=== PATIENT | male | born 1945 | race Caucasian/White ===

== ENCOUNTER 2018-02-08 22:32 | Emergency (ER) | payer MEDICARE, MEDICAID ==
[~2018-02-08] VITALS: Ht 170.2 cm; Wt 56.7 kg
--- OUTSIDE RECORDS SUMMARY | 2018-02-08 22:37 | XMS REPORT ---
Author Author JANEEN PEÑA Organization [facility] Address [address] [place] [address] Care Team Providers Care Creative Assistant Name Role Phone JANEEN PEÑA Unavailable PROBLEMS Type Condition ICD9-CM Code AKT35-VB Code Onset Dates Condition Status SNOMED Code Problem Frail elderly R54 Active 484406547 Problem Anemia in chronic illness D63.8 Active 362103997 Problem Dysthymia F34.1 Active 14354997 Problem Acquired hypothyroidism E03.9 Active 292200041 Problem Low back pain M54.5 Active 205802743 Problem Cervical stenosis of spinal canal M48.02 Active 03004921 Problem Moderate episode of recurrent major depressive disorder F33.1 Active 568086232 Problem Abscess of groin, right L02.214 Active 39609766 Problem Age-related cognitive decline R41.81 Active 989638247 Problem High risk medication use Z79.899 Active [id number] ALLERGIES No Information SOCIAL HISTORY Never Assessed PLAN OF CARE VITAL SIGNS MEDICATIONS Unknown Medications RESULTS No Results PROCEDURES No Known procedures IMMUNIZATIONS No Known Immunizations MEDICAL (GENERAL) HISTORY Type Description Date Medical History Spinal stenosis of lumbar region Medical History Degeneration of lumbar or lumbosacral intervertebral disc Medical History Spinal stenosis in cervical region Medical History Chronic lymphocytic thyroiditis Medical History Hepatomegaly Medical History Other chronic nonalcoholic liver disease Medical History Nondependent tobacco use disorder Medical History Memory loss Medical History Chronic hepatitis C without mention of hepatic coma Medical History Umbilical hernia without mention of obstruction or gangrene Medical History 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
--- OUTSIDE RECORDS SUMMARY | 2018-02-08 22:37 | XMS REPORT ---
Author Author JANEEN PEÑA Organization [employer] Address Unknown Phone Unavailable Care Team Providers Care Heading Maker Name Role Phone JANEEN PEÑA CP Unavailable Allergies, Adverse Reactions, Alerts Substance Reaction Event Type N.K.D.A. Info Not Available Non Drug Allergy Problems Problem Type Condition Code Onset Dates Condition Status Problem Unspecified curvature of spine associated with other condition 737.9 Active Problem Hyposmolality and/or hyponatremia 276.1 Active Problem Chronic hepatitis C without mention of hepatic coma 070.54 Active Assessment Frail elderly R54 Active Assessment Acquired hypothyroidism E03.9 Active Problem Acquired hypothyroidism E03.9 Active Problem Frail elderly R54 Active Problem Dysthymia F34.1 Active Problem Other specified drug dependence, unspecified abuse 304.60 Active Problem Nondependent alcohol abuse, unspecified drunkenness 305.00 Active Problem Chronic lymphocytic thyroiditis 245.2 Active Problem Nondependent tobacco use disorder 305.1 Active Medications Medication Code System Code Instructions Start Date End Date Status Dosage Levothyroxine Sodium [facility] 15768800373 125 MCG Orally Once a day 1 tablet Morphine Sulfate [facility] [address]-71 30 MG Orally 2 times a day 1 tablet as needed Gabapentin [facility] [address]-62 600 MG Orally 4 times a day Dec 19, 2014 1 tablet Procedures Procedure Coding System Code Date [facility] VISIT ESTABLISHED PATIENT CPT-4 G0467 May 24, 2016 Office Visit, Est Pt., Level 3 CPT-4 61432 May 24, 2016 [facility] CPT-4 NOBLL May 24, 2016 VENIPUNCT, ROUTINE* CPT-4 06357 May 24, 2016 Vital Signs Date/Time: May 24, 2016 Cardiac Monitoring Heart Rate 81 bpm Weight 124.3 lbs Height 67 in BMI 19.47 Index Blood Pressure Diastolic 64 mmHg Blood Pressure Systolic 96 mmHg Results No Known Results Summary Purpose [employer] Submission
--- OUTSIDE RECORDS SUMMARY | 2018-02-08 22:37 | XMS REPORT ---
Author Author JANEEN PEÑA Organization [facility] Address [address] [place] [address] Care Team Providers Care Restaurant District Manager Name Role Phone JANEEN PEÑA Unavailable PROBLEMS Type Condition ICD9-CM Code YUA73-PH Code Onset Dates Condition Status SNOMED Code Problem Frail elderly R54 Active 372829146 Problem Anemia in chronic illness D63.8 Active 769870555 Problem Dysthymia F34.1 Active 44935496 Problem Acquired hypothyroidism E03.9 Active 950958825 Problem Low back pain M54.5 Active 730708088 Problem Cervical stenosis of spinal canal M48.02 Active 61266580 Problem Moderate episode of recurrent major depressive disorder F33.1 Active 434603081 Problem Abscess of groin, right L02.214 Active 83833910 Problem Age-related cognitive decline R41.81 Active 449686338 Problem High risk medication use Z79.899 Active [id number] ALLERGIES No Information SOCIAL HISTORY Never Assessed [...]
--- OUTSIDE RECORDS SUMMARY | 2018-02-08 22:38 | XMS REPORT ---
Author Author ROBE LABOY [facility] [employer] Address Unknown Phone Unavailable Care Team Providers Care Furnace Installer Helper Name Role Phone ROBE LABOY Unavailable Allergies, Adverse Reactions, Alerts Substance Reaction Event Type N.K.D.A. Info Not Available Non Drug Allergy Problems Problem Type Condition Code Onset Dates Condition Status Problem Unspecified viral hepatitis C without hepatic coma 070.70 Active Problem Unspecified curvature of spine associated with other condition 737.9 Active Problem Unspecified anemia 285.9 Active Problem Chronic lymphocytic thyroiditis 245.2 Active Problem Nondependent tobacco use disorder 305.1 Active Problem Spinal stenosis of lumbar region 724.02 Active Problem Hyposmolality and/or hyponatremia 276.1 Active Problem Chronic hepatitis C without mention of hepatic coma 070.54 Active Problem Other specified drug dependence, unspecified abuse 304.60 Active Problem Nondependent alcohol abuse, unspecified drunkenness 305.[address] of the chest 793.2 Active Assessment Chronic lymphocytic thyroiditis 245.2 Active Assessment Spinal stenosis of lumbar region 724.02 Active Assessment Abnormal weight loss 783.21 Active Problem Degeneration of cervical intervertebral disc 722.4 Active Medications Medication Code System Code Instructions Start Date End Date Status Dosage Levothyroxine Sodium [facility] [address]-00 150 MCG Orally Once a day 1 tablet Gabapentin [facility] [address]-67 600 MG Orally 4 times a day Dec 19, 2014 1 tablet Levaquin [facility] [address]-95 750 MG Orally Once a day Jul 16, 2015 Jul 23, 2015 1 tablet Procedures Procedure Coding System Code Date [facility] VISIT ESTABLISHED PATIENT CPT-4 G0467 Jul 16, 2015 Office Visit, Est Pt., Level 4 CPT-4 27930 Jul 16, 2015 [facility] CPT-4 NOBLL Jul 16, 2015 VENIPUNCT, ROUTINE* CPT-4 65069 Jul 16, 2015 Vital Signs Date/Time: Jul 16, 2015 Temperature 98.2 F Weight 128 lbs Height 67 in BMI 20.05 Index Blood Pressure Diastolic 60 mmHg Blood Pressure Systolic 90 mmHg Cardiac Monitoring Heart Rate 84 bpm Results Name Result Date Reference Range Unit Abnormality Flag AFP TUMOR MARKER, SERUM ROUTINE VENIPUNCTURE CT Scan : Chest w/ Contrast Summary Purpose [employer] Submission
--- OUTSIDE RECORDS SUMMARY | 2018-02-08 22:38 | XMS REPORT ---
Author Author JANEEN PEÑA [facility] Address [address] [place] [address] Care Team Providers Care Bottle Sorter Name Role Phone JANEEN PEÑA Unavailable PROBLEMS Type Condition ICD9-CM Code XAD60-SD Code Onset Dates Condition Status SNOMED Code Problem Age-related cognitive decline R41.81 Active 369469558 Problem Low back pain M54.5 Active 387155679 Problem Cervical stenosis of spinal canal M48.02 Active 40228492 Problem Autoimmune thyroiditis E06.3 Active 00536547 Problem Chronic pain due to trauma G89.21 Active 678250070 Problem Hearing loss, unspecified hearing loss type, unspecified laterality H91.90 Active 94300259 Problem Blind H54.7 Active 120667225 Problem Other chronic pain G89.29 Active 69997579 Problem Chronic hepatitis C without hepatic coma B18.2 Active 998206381 Problem Acquired hypothyroidism E03.9 Active 519853137 Problem Anemia in chronic illness D63.8 Active 068151263 Problem Abscess of groin, right L02.214 Active 18139982 Problem Frail elderly R54 Active 971899483 Problem Moderate episode of recurrent major depressive disorder F33.1 Active 336465740 Problem Dysthymia F34.1 Active 11142317 Problem High risk medication use Z79.899 Active [id number] ALLERGIES No Known Allergies ENCOUNTERS Encounter Location Date Diagnosis [facility] [address] [facility] [id number] [place] [address] Dec, Cervical stenosis of spinal canal M48.02 and Spinal stenosis , lumbosacral region M48.07 [employer] [address] [place] [address] Dec, Encounter for examination for admission to retirement Z02.2 ; Spinal stenosis, lumbosacral region M48.07 ; Chronic pain due to trauma G89.21 ; Cervical stenosis of spinal canal M48.02 ; Autoimmune thyroiditis E06.3 ; Chronic hepatitis C without hepatic coma B18.2 ; Anemia in chronic illness D63.8 ; Frail elderly R54 ; Age-related cognitive decline R41.81 ; Hearing loss , unspecified hearing loss type, unspecified laterality H91.90 ; Blind H54.7 ; Tobacco abuse Z72.0 and Neglected elder, initial encounter T74.01XA [facility] [address] [facility] [id number] [place] [address] Dec, [facility] [address] [id number] [place] [address] Dec, High risk medication use Z79.899 ; Cervical stenosis of spinal canal M48.02 ; Frail elderly R54 and Age-related cognitive decline R41.[address] [facility] [address] [id number][place] [address] Dec, [facility] [address] [id number][place] [address] Dec, [facility] [address] [id number][place] [id number] Aug, [facility] [address] [id number][place] [address] Jul, [facility] [address] [id number][place] [address] Jun, High risk medication use Z79.[address] [facility] [address] [id number][place] [address] Jun, [facility] [address] [id number] [place] [address] May, [facility] [address] [id number][place] [address] May, High risk medication use Z79.[address] [facility] [address] [id number][place] [address] May, [facility] [address] [id number] [place] [address] May, Acquired hypothyroidism E03.[address] [facility] [address] [id number] [place] [address] May, Acquired hypothyroidism E03.[address] [facility] [address] [id number] [place] [address] May, High risk medication use Z79.899 [facility] [address] [facility] [id number], [place] [address] Apr, [facility] [address] [id number] [place] [address] Apr, [facility] [address] [id number] [place] [address] Apr, Cervical stenosis of spinal canal M48.[address] [facility] [address] [id number][place] [address] Apr, High risk medication use Z79.[address] [facility] [address] [id number], [place] [address] Mar, High risk medication use Z79.899 ; Cervical stenosis of spinal canal M48.02 and Low back pain M54.[address] [facility] [address] [id number], [place] [address] Mar, [facility] [address] [id number] [place] [address] Mar, [facility] [address] [id number] [place] [address] Mar, High risk medication use Z79.[address] [facility] [address] [id number] [place] [id number] February, [facility] [address] [id number] [place] [address] February, [facility] [address] [id number][place] [address] February, [facility] [address] [id number] [place] [address] February, [facility] [address] [id number], [place] [id number] February, [facility] [address] [id number], [place] [address] February, [facility] [address] [id number][place] [address] February, High risk medication use Z79.899 ; Cervical stenosis of spinal canal M48.02 ; Abscess of groin, right L02.214 and Age-related cognitive decline R41.[address] [facility] [address] [id number], [place] [address] February, [facility] [address] [id number] [address] February, Acquired hypothyroidism E03.[address] [facility] [address] [id number], [place] [id number] February, [facility] [address] [facility] [id number][place] [address] February, Anemia in chronic illness D63.8 and Acquired hypothyroidism E03.9 [facility] [address] [id number], [place] [id number] February, Acquired hypothyroidism E03.9 and Anemia in chronic illness D63.[address] [facility] [address] [id number], [place] [address] February, Cervical stenosis of spinal canal M48.02 [facility] [address] [address] [id number], [place] [address] February, [facility] [address] [id number], [place] [id number] Jan, [facility] [address] [id number][place] [address] Jan, Moderate episode of recurrent major depressive disorder F33.[address] [facility] [address] [id number] [place] [address] Jan, [facility] [address] [id number] [place] [address] Jan, Abscess of groin, right L02.[address] [facility] [address] [id number] [place] [address] Jan, Abscess of right groin L02.[address] [facility] [address] [id number] [place] [address] May, [facility] [address] [id number] [place] [address] May, [facility] [address] [id number] [place] [address] May, Anemia in chronic illness D63.8 and Acquired hypothyroidism E03.[address] [facility] [address] [id number], [place] [address]1987[address] May, Dysthymia F34.[address] [facility] [address] [id number] [place] [address] May, Acquired hypothyroidism E03.9 and Frail elderly R54 [facility] [address] [id number], [place] [address] Jan, Hypothyroidism E03.[address] [facility] [address] [id number] [place] [address] Dec, [facility] [address] [id number] [place] [address] Jul, [facility] [address] [id number] [place] [address] Jun, [facility] [address] [id number] [place] [address] Jun, Spinal stenosis of lumbar region 724.02 ; Chronic lymphocytic thyroiditis 245.2 ; Abnormal CT of the chest 793.2 and Abnormal weight loss 783.[address] [facility] [address] [id number] [place] [address] Apr, Dental examination V72.2 [facility] [address] [id number][place] [address] Apr, [facility] [address] [id number], [place] [address] Apr, Spinal stenosis of lumbar region 724.02 and Chronic lymphocytic thyroiditis 245.2 [facility] [address] [id number], [place] [id number] Apr, [facility] [address] [id number], [place] [id number] Apr, [facility] [address] [id number], [place] [address] Apr, [place] [address] [id number] Mar, [id number], [place] [address] Mar, [facility] [address] [id number], [place] [id number] Mar, Spinal stenosis of lumbar region 724.02 ; Chronic lymphocytic thyroiditis 245.2 and Noncompliance with therapeutic plan V15.81 [facility] [address] [id number], [place] [address] February, [facility] [address] [id number], [place] 446[address] February, [facility] [address] [id number], [place] 334[address] February, Chronic lymphocytic thyroiditis 245.2 [facility] [address] [id number], [place] [id number] Jan, [facility] [address] [id number] [address] Jan, [facility] [address] [id number] [address] 13 Jan, 2015 [facility] [place] [facility] [address] [id number] [place] [address] Dec, [facility] [place] [facility] [address] [id number] [place] [address] Dec, [facility] [place] [facility] [address] [id number] [place] [address] Dec, [facility] [place] [facility] [address] [id number] [place] [address] Dec, [facility] [place] [facility] [address] [id number] [place] [address] Dec, [facility] [place] [facility] [address] [id number] [place] [address] Dec, [facility] [place] [facility] [address] [id number] [place] [address] Dec, [facility] [place] [facility] [address] [id number] [place] [address] Dec, [facility] [place] [facility] [address] [id number] [place] [address] Dec, [facility] [place] [facility] [address] [facility] [id number] [place] [address] Dec, [facility] [place] [facility] [address] [id number] [place] [address] Nov, [facility] [place] [facility] [address] [id number] [place] [address] Nov, [facility] [place] [facility] [address] [id number] [place] [address] Nov, [facility] [place] [facility] [address] [id number] [place] [address] Nov, [facility] [place] [facility] [address] [id number] [place] [address] Oct, [facility] [place] [facility] [address] [id number] [place] [address] Oct, [facility] [place] [facility] [address] [id number] [place] [address] Oct, [facility] [place] [facility] [address] [id number] [place] Sep, [facility] [place] [facility] [address] [id number] [place] [address] Sep, [facility] [address] [id number] [place] [address] Sep, [facility] [place] [facility] [address] [id number] [place] [address] Sep, [facility] [address] [id number] [place] [address] Sep, [facility] [address] [id number] [place] [address] Sep, [facility] [place] [facility] [address] [id number] [place] [address] Sep, [facility] [place] [facility] [address] [id number] [place] [address] Sep, [facility] [place] [facility] [address] [id number] [place] [address] Sep, [facility] [place] [facility] [address] [id number] [place] [address]- [address] Sep, [facility] [place] [facility] [address] [id number] [place] [address]- [address] Sep, [facility] [place] [facility] [address] [id number] [place] [address] Sep, [facility] [place] [facility] [address] [id number] [place] [address] Sep, [facility] [place] [facility] [address] [id number], [place] [address] Sep, [facility] [place] [facility] [address] [id number] [place] [address]- [address] Aug, [facility] [place] [facility] [address] [id number] [place] [address]- [address] Aug, [facility] [place] [facility] [address] [id number] [place] [address]- [address] Aug, [facility] [place] [facility] [address] [id number] [place] [address]- [address] Aug, [facility] [place] [facility] [address] [id number] [place] [address]- [address] Aug, [facility] [place] [facility] [address] [id number] [place] [address]- [address] Aug, [facility] [place] [facility] [address] [id number] [place] [address]- [address] Aug, [facility] [place] [facility] [address] [id number] [place] [address]- [address] Aug, [facility] [place] [facility] [address] [id number] [place] [address]- [address] Aug, [facility] [place] [facility] [address] [id number] [place] [address]- [address] Aug, [facility] [place] [facility] [address] [id number], [place] [address]- [address] Jul, [facility] [place] [facility] [address] [id number], [place] [address] Jul, [facility] [place] [facility] [address] [id number] [place] [address]- [address] Jul, [facility] [place] [facility] [address] [id number] [place] [address]- [address] Jul, [facility] [place] [facility] [address] [id number] [place] [address]- [address] Jul, [facility] [place] [facility] [address] [id number], [place] [address] Jul, [facility] [address]65100[place], [place] [address] Jul, [facility] [address]00565100[place], [place] [address] Jul, [facility] [address]65100[place], [place] Jul, [facility] [address]65100[place], [place] [address] Jul, [facility] [id number] [place] [address] Jul, [facility] [address]65100[place], [place] [address] Jul, [facility] [address]65100[place], [place] [address] Jul, [facility] [address] [id number], [place] [address] Jul, IMMUNIZATIONS No Known Immunizations SOCIAL HISTORY Never Assessed REASON FOR VISIT Pain management (chronic), Pt states he has been out of pain meds for a day and a half. Elmer DAVID PLAN OF CARE Activity Details Follow Up 3 Months Reason:chronic pain VITAL SIGNS Height 67 in 2017-04-19 Weight 131.8 lbs 2017-04-19 Temperature 98.4 degrees Fahrenheit 2017-04-19 Heart Rate 81 bpm 2017-04-19 Respiratory Rate 17 2017-04-19 BMI 20.64 kg/m2 2017-04-19 Blood pressure systolic 130 mmHg 2017-04-19 Blood pressure diastolic 88 mmHg 2017-04-19 MEDICATIONS Medication Instructions Dosage Frequency Start Date End Date Duration Status MS Contin 30 MG Orally every 12 hrs 1 tablet 12h February, Active Gabapentin 800 MG 1 TAB(S) PO TID Active Levothyroxine Sodium 100 MCG Orally Once a day 1 tablet 24h 0 days Active Ultram 50 mg Orally 3 times a day 1 tablet as needed 8h February, Active RESULTS No Results PROCEDURES Procedure Date Ordered Result Body Site [facility] VISIT ESTABLISHED PATIENT April 19, 2017 INSTRUCTIONS MEDICATIONS ADMINISTERED No Known Medications MEDICAL (GENERAL) HISTORY Type Description Date Medical [...]
--- OUTSIDE RECORDS SUMMARY | 2018-02-08 22:38 | XMS REPORT ---
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 Name Role Phone JANEEN PEÑA Unavailable PROBLEMS Type Condition ICD9-CM Code JEV00-LG Code Onset Dates Condition Status SNOMED Code Problem Age-related cognitive decline R41.81 Active 245102512 Problem Low back pain M54.5 Active 160824035 Problem Cervical stenosis of spinal canal M48.02 Active 06693334 Problem Autoimmune thyroiditis E06.3 Active 38005132 Problem Chronic pain due to trauma G89.21 Active 170367762 Problem Hearing loss, unspecified hearing loss type, unspecified laterality H91.90 Active 46809179 Problem Blind H54.7 Active 194338148 Problem Other chronic pain G89.29 Active 42701215 Problem Chronic hepatitis C without hepatic coma B18.2 Active 517270459 Problem Acquired hypothyroidism E03.9 Active 358694150 Problem Anemia in chronic illness D63.8 Active 767844109 Problem Abscess of groin, right L02.214 Active 25524674 Problem Frail elderly R54 Active 727683443 Problem Moderate episode of recurrent major depressive disorder F33.1 Active 158429418 Problem Dysthymia F34.1 Active 46108261 Problem High risk medication use Z79.899 Active [id number] ALLERGIES No Information ENCOUNTERS Encounter Location Date Diagnosis [facility] [employer] [address] [place] [address] Dec, Encounter for examination for admission to prison Z02.2 ; Spinal stenosis, lumbosacral region M48.07 [...] and Neglected elder, initial encounter T74.01XA [facility] [address] [facility] [id number] [place] [address] Dec, [facility] [address] [id number][place] [address] Dec, High risk medication use Z79.899 ; Cervical stenosis of spinal canal M48.02 ; Frail elderly R54 and Age-related cognitive decline R41.[address] [facility] [address] [id number][place] [address] Dec, [facility] [address] [id number][place] [id number] Dec, [facility] [address] [id number], [place] [address] Aug, [facility] [address] [id number], [place] [address] Jul, [facility] [address] [id number][place] [address] Jun, High risk medication use Z79.[address] [facility] [address] [id number], [place] [address] Jun, [facility] [address] [id number], [place] [address] May, [facility] [address] [id number], [place] [address] May, High risk medication use Z79.[address] [facility] [address] [id number], [place] [address] May, [facility] [address] [id number], [place] [address] May, Acquired hypothyroidism E03.[address] [facility] [address] [id number], [place] [address] May, Acquired hypothyroidism E03.[address] [facility] [address] [id number] [place] [address] May, High risk medication use Z79.899 [facility] [address] [facility] [id number] [place] [address] Apr, [facility] [address] [id number] [place] [address] Apr, [facility] [address] [id number] [place] [address] Apr, Cervical stenosis of spinal canal M48.[address] [facility] [address] [id number] [place] [address] Apr, High risk medication use Z79.[address] [facility] [address] [id number] [place] [address] Mar, High risk medication use Z79.899 ; Cervical stenosis of spinal canal M48.02 and Low back pain M54.[address] [facility] [address] [id number] [place] [address] Mar, [facility] [address] [id number] [place] [address] Mar, [facility] [address] [id number] [place] [address] Mar, High risk medication use Z79.[address] [facility] [address] [id number] [place] [address] February, [facility] [address] [id number] [place] [address] February, [facility] [address] [id number] [place] [address] February, [facility] [address] [id number] [place] [address] February, [facility] [address] [id number] [place] [address] February, [facility] [address] [id number][place] [address] February, [facility] [address] [id number], [place] [address] February, High risk medication use Z79.899 ; Cervical stenosis of spinal canal M48.02 ; Abscess of groin, right L02.214 and Age-related cognitive decline R41.81 [facility] [address] [id number][place] [address] February, [facility] [address] [id number], [place] [address] February, [facility]quired hypothyroidism E03.9 [facility] [address] [id number][place] [address] February, [facility] [address] [facility] [id number][place] [address] February, Anemia in chronic illness D63.8 and Acquired hypothyroidism E03.9 [facility] [address] [id number], [place] [address] February, Acquired hypothyroidism E03.9 and Anemia in chronic illness D63.8 [facility] [address] [id number], [place] [address] February, Cervical stenosis of spinal canal M48.02 [facility] [address] [id number], [place] [address] February, [facility] [address] [id number], [place] [address] Jan, [facility] [address] [id number], [place] [address] Jan, Moderate episode of recurrent major depressive disorder F33.1 [facility] [address] [id number], [place] [address] Jan, [facility] [address] [id number], [place] [address] Jan, Abscess of groin, right L02.214 [facility] [address] [id number], [place] [address] Jan, Abscess of right groin L02.[address] [facility] [address] [id number], [place] [address] May, [facility] [address] [id number], [place] [address] May, [facility] [address] [id number], [place] [address] May, Anemia in chronic illness D63.8 and Acquired hypothyroidism E03.9 [facility] [address] [id number], [place] [address] May, Dysthymia F34.1 [facility] [address] [id number], [place] [address] May, Acquired hypothyroidism E03.9 and Frail elderly R54 [facility] [address] [id number], [place] [address] Jan, Hypothyroidism E03.9 [facility] [address] [id number], [place] [address] Dec, [facility] [address] [id number], [place] [address] Jul, [facility] [address] [id number], [place] [address] Jun, [facility] [address] [id number], [place] [address] Jun, Spinal stenosis of lumbar region 724.02 ; Chronic lymphocytic thyroiditis 245.2 ; Abnormal CT of the chest 793.2 and Abnormal weight loss 783.21 [facility] [address] [id number], [place] [address] Apr, Dental examination V72.2 [facility] [address] [id number][place] [id number] Apr, [facility] [address] [id number], [place] [address] Apr, Spinal stenosis of lumbar region 724.02 and Chronic lymphocytic thyroiditis 245.[address] [facility] [address] [id number], [place] 249625349 Apr, [facility] [address] [id number], [place] [address] Apr, [facility] [address] [id number], [place] [address]40 Apr, [facility] [address] [facility] [id number], [place] [address] Mar, [facility] [address] [facility] [id number], [place] [address] Mar, [facility] [address] [id number], [place] [address] Mar, Spinal stenosis of lumbar region 724.02 ; Chronic lymphocytic thyroiditis 245.2 and Noncompliance with therapeutic plan V15.81 [facility] [address]00565100[place], [place] [address] February, [facility] [address] [id number], [place] [address]393 February, [facility] [address] [id number], [place] 20195[address]35 February, Chronic lymphocytic thyroiditis 245.2 [facility] [address] [id number], [place] [address] Jan, [facility] [address] [id number], [place] [address] Jan, [facility] [address]65100[place], [place] [address] Jan, [facility] [address]00565100[place], [place] [address] Dec, [facility] [address] [facility] [id number] [place] [address] Dec, [facility] [place] [facility] [address] [id number] [place] [address] Dec, [facility] [place] [facility] [address] [id number] [place] [address] Dec, [facility] [place] [facility] [address] [id number] [place] [address] Dec, [facility] [place] [facility] [address] [id number] [place] [address] Dec, [facility] [place] [facility] [address] [id number] [place] [address] Dec, [facility] [place] [facility] [address] [facility] [id number] [place] [address] Dec, [facility] [place] [facility] [address] [id number] [place] [address]- [address] Dec, [facility] [place] [facility] [address] [id number] [place] [address]- [address] Dec, [facility] [place] [facility] [address] [id number] [place] [address] Nov, [facility] [place] [facility] [address] [id number] [place] [address]- [address] Nov, [facility] [place] [facility] [address] [id number] [place] [address]- [address] Nov, [facility] [place] [facility] [address] [id number] [place] [address]- [address] Nov, [facility] [place] [facility] [address] [id number] [place] [address]- [address] Oct, [facility] [place] [facility] [address] [id number] [place] [address]- [address] Oct, [facility] [place] [facility] [address] [id number] [place] [address]- [address] Oct, [facility] [place] [facility] [address] [id number] [place] [address]- [address] Sep, [facility] [place] [facility] [address] [id number] [place] [address] Sep, [facility] [place] [facility] [address] [id number] [place] [address] Sep, [facility] [place] [facility] [address] [id number] [place] [address]- [address] Sep, [facility] [place] [facility] [address] [id number] [place] [address]- [address] Sep, [facility] [place] [facility] [address] [id number] [place] [address]- [address] Sep, [facility] [place] [facility] [address] [id number] [place] [address]- [address] Sep, [facility] [place] [facility] [address] [id number] [place] [address]- [address] Sep, [facility] [place] [facility] [address] [id number] [place] [address]- [address] Sep, [facility] [place] [facility] [address] [id number] [place] [address]- [address] Sep, [facility] [place] [facility] [address] [id number] [place] [address]- [address] Sep, [facility] [place] [facility] [address] [id number] [place] [address]- [address] Sep, [facility] [place] [facility] [address] [id number] [place] [address]- [address] Sep, [facility] [place] [facility] [address] [id number] [place] [address]- [address] Sep, [facility] [place] [facility] [address] [id number] [place] [address] Aug, [facility] [place] [facility] [address] [id number] [place] [address]- [address] Aug, [facility] [place] [facility] [address] [id number] [place] [address]- [address] Aug, [facility] [place] [facility] [address] [id number] [place] [address]- 269[address] Aug, [facility] [place] [facility] [address] [id number] [place] [address]- [address] Aug, [facility] [place] [facility] [address] [id number] [place] [address] Aug, [facility] [place] [facility] [address] [id number] [place] [address] Aug, [facility] [place] [facility] [address] [id number] [place] [address]- [address] Aug, [facility] [place] [facility] [address] [id number] [place] [address]- [address] Aug, [facility] [place] [facility] [address] [id number] [place] [address]- [address] Aug, [facility] [place] [facility] [address] [id number] [place] [address]- [address] Jul, [facility] [place] [facility] [address] [id number] [place] [address]- [address] Jul, [facility] [place] [facility] [address] [id number] [place] [address]- [address] Jul, [facility] [place] [facility] [address] [id number] [place] [address]- [address] Jul, [facility] [place] [facility] [address] [id number] [place] [address]- [address] Jul, [facility] [place] [facility] [address] [id number] [place] [address]- [address] Jul, [facility] [place] [facility] [address] [id number] [place] [address]- [address] Jul, [facility] [address] [facility] [id number], [place] [address] Jul, [facility] [address] [facility] [id number], [place] [address] Jul, [facility] [address] [facility] [id number], [place] [address] Jul, [facility] [address] [id number], [place] [address] Jul, [facility] [address] [facility] [id number], [place] [address] Jul, [facility] [address] [id number], [place] [address] Jul, [facility] [address] [id number], [place] [address] Jul, IMMUNIZATIONS No Known Immunizations SOCIAL HISTORY Never Assessed REASON FOR VISIT refill PLAN OF CARE VITAL SIGNS MEDICATIONS Medication Instructions Dosage Frequency Start Date End Date Duration Status Ultram 50 mg Orally 3 times a day 1 tablet as needed 8h February, Active MS Contin 30 MG Orally every 12 hrs 1 tablet 12h February, Active RESULTS No Results PROCEDURES No Known procedures INSTRUCTIONS MEDICATIONS ADMINISTERED No Known Medications MEDICAL [...]
--- OUTSIDE RECORDS SUMMARY | 2018-02-08 22:38 | XMS REPORT ---
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 Name Role Phone JANEEN PEÑA Unavailable Allergies No Known Allergies Problems Problem Type Condition Code Onset Dates Condition Status Problem Chronic hepatitis C without mention of hepatic coma 070.54 Active Problem Nondependent alcohol abuse, unspecified drunkenness 305.00 Active Problem Hyposmolality and/or hyponatremia 276.1 Active Problem Unspecified curvature of spine associated with other condition 737.9 Active Problem Dysthymia F34.1 Active Problem Acquired hypothyroidism E03.9 Active Problem Anemia in chronic illness D63.8 Active Problem Nondependent tobacco use disorder 305.1 Active Problem Other specified drug dependence, unspecified abuse 304.60 Active Problem Frail elderly R54 Active Problem Chronic lymphocytic thyroiditis 245.2 Active Medications Medication Code System Code Instructions Start Date End Date Status Dosage Iron [facility] [address] 325 (65 Fe) MG Orally twice a day with meals Jun 22, 2016 1 tablet Results No Known Results Summary Purpose [employer] Submission
--- OUTSIDE RECORDS SUMMARY | 2018-02-08 22:39 | XMS REPORT ---
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 Name Role Phone JANEEN PEÑA Unavailable PROBLEMS Type Condition ICD9-CM Code OPO89-SL Code Onset Dates Condition Status SNOMED Code Problem Frail elderly R54 Active 640581297 Problem Anemia in chronic illness D63.8 Active 268119580 Problem Dysthymia F34.1 Active 20307951 Problem Acquired hypothyroidism E03.9 Active 878271679 Problem Low back pain M54.5 Active 422164073 Problem Cervical stenosis of spinal canal M48.02 Active 92238622 Problem Moderate episode of recurrent major depressive disorder F33.1 Active 107514854 Problem Abscess of groin, right L02.214 Active 76256257 Problem Age-related cognitive decline R41.81 Active 276037329 Problem High risk medication use Z79.899 Active [id number] ALLERGIES No Information SOCIAL HISTORY Never Assessed [...]
--- OUTSIDE RECORDS SUMMARY | 2018-02-08 22:39 | XMS REPORT ---
Author Author CHANTALE CAMPOS Organization [facility] Address Unknown Phone Unavailable Care Team Providers Care Line Up Worker Name Role Phone CHANTALE CAMPOS Unavailable Unavailable PROBLEMS Type Condition ICD9-CM Code SGR74-LQ Code Onset Dates Condition Status SNOMED Code Problem Frail elderly R54 Active 887480629 Problem Anemia in chronic illness D63.8 Active 934941911 Problem Dysthymia F34.1 Active 38009446 Problem Acquired hypothyroidism E03.9 Active 822692961 Problem Low back pain M54.5 Active 287735123 Problem Cervical stenosis of spinal canal M48.02 Active 04377586 Problem Moderate episode of recurrent major depressive disorder F33.1 Active 191203013 Problem Abscess of groin, right L02.214 Active 08577207 Problem Age-related cognitive decline R41.81 Active 190086059 Problem High risk medication use Z79.899 Active [id number] ALLERGIES No Information SOCIAL HISTORY Never Assessed [...]
--- OUTSIDE RECORDS SUMMARY | 2018-02-08 22:39 | XMS REPORT ---
Author Author JANEEN PEÑA Organization [facility] Address [address] [place] [address] Care Team Providers Care Hoisting Engineer Name Role Phone JANEEN PEÑA Unavailable PROBLEMS Type Condition ICD9-CM Code DVC19-OR Code Onset Dates Condition Status SNOMED Code Problem Frail elderly R54 Active 206028296 Problem Anemia in chronic illness D63.8 Active 889144521 Problem Dysthymia F34.1 Active 56124834 Problem Acquired hypothyroidism E03.9 Active 463637906 Problem Low back pain M54.5 Active 144470185 Problem Cervical stenosis of spinal canal M48.02 Active 80236490 Problem Moderate episode of recurrent major depressive disorder F33.1 Active 258419705 Problem Abscess of groin, right L02.214 Active 24811568 Problem Age-related cognitive decline R41.81 Active 726217446 Problem High risk medication use Z79.899 Active 441314897127141 ALLERGIES No Information SOCIAL HISTORY Never Assessed [...]
--- OUTSIDE RECORDS SUMMARY | 2018-02-08 22:39 | XMS REPORT ---
Author Author MARIANA JANEEN [facility] Address [address] [place] [address] Care Team Providers Care Brigadier Name Role Phone JANEEN PEÑA Unavailable PROBLEMS Type Condition ICD9-CM Code [id number] Code Onset Dates Condition Status SNOMED Code Problem Age-related cognitive decline R41.81 Active 373612818 Problem Low back pain M54.5 Active 014023482 Problem Cervical stenosis of spinal canal M48.02 Active 50536779 Problem Autoimmune thyroiditis E06.3 Active 75615379 Problem Chronic pain due to trauma G89.21 Active 516366005 Problem Hearing loss, unspecified hearing loss type, unspecified laterality H91.90 Active 63378929 Problem Blind H54.7 Active 639512132 Problem Other chronic pain G89.29 Active 61087196 Problem Chronic hepatitis C without hepatic coma B18.2 Active 684674852 Problem Acquired hypothyroidism E03.9 Active 136993426 Problem Anemia in chronic illness D63.8 Active 355790216 Problem Abscess of groin, right L02.214 Active 41116829 Problem Frail elderly R54 Active 246105102 Problem Moderate episode of recurrent major depressive disorder F33.1 Active 783586453 Problem Dysthymia F34.1 Active 04576075 Problem High risk medication use Z79.899 Active [id number] ALLERGIES No Information ENCOUNTERS Encounter Location Date Diagnosis [facility] [address] [address] Dec, Cervical stenosis of spinal canal M48.02 [facility] [address] [place] [address] Dec, Cervical stenosis of spinal canal M48.02 [facility] [id number] [address] Dec, Cervical stenosis of spinal canal M48.02 and Spinal stenosis , lumbosacral region M48.07 [facility] [address] [place] [address] 15 Dec, 2017 Encounter for examination for admission to [facility]ci Z02.2 ; Spinal stenosis, lumbosacral region M48.07 [...] Z72.0 and Neglected elder, initial encounter T74.01XA [facility] [address] [facility] [address] [id number] [place] [address] Dec, [facility] [id number] [id number] Dec, High risk medication use Z79.899 ; Cervical stenosis of spinal canal M48.02 ; Frail elderly R54 and Age-related cognitive decline R41.81 [facility] [id number] [address] Dec, [facility] [id number] [id number] Dec, [facility] [id number], [place] [id number] Aug, [facility] [id number], [place] [id number] Jul, [facility] [id number] [address] Jun, High risk medication use Z79.[address] [facility] [id number] [address] Jun, [facility] [id number] [address] May, [facility] [address] [id number] [place] [id number] May, High risk medication use Z79.[address] [facility] [address] [id number] [place] [id number] May, [facility] [address] [id number] [place] [address] May, Acquired hypothyroidism E03.[address] [facility] [address] [id number] [place] [address] May, Acquired hypothyroidism E03.[address] [facility] [id number], [place] [address] May, High risk medication use Z79.899 [facility] [address] [facility] [address] [id number], [place] [address] Apr, [facility] [id number] [address] Apr, [facility] [id number], [place] [address] Apr, Cervical stenosis of spinal canal M48.[address] [facility] [id number], [place] [address] Apr, High risk medication use Z79.[address] [facility] [id number], [place] [address] Mar, High risk medication use Z79.899 ; Cervical stenosis of spinal canal M48.02 and Low back pain M54.[address] [facility] [address] [id number] [place] [id number] Mar, [facility] [id number] [address] Mar, [facility] [id number] [id number] Mar, High risk medication use Z79.[address] [facility] [id number], [place] [id number] February, [facility] [address] [id number] [place] [id number] February, [facility] [address] [id number] [place] [id number] February, [facility] [address] [id number] [place] [address] February, [facility] [id number], [place] [address] February, [facility] [address] [id number] [place] [address] February, [facility] [id number], [place] [address] February, High risk medication use Z79.899 ; Cervical stenosis of spinal canal M48.02 ; Abscess of groin, right L02.214 and Age-related cognitive decline R41.[address] [facility] [id number], [place] [address] February, [facility] [id number] [id number] February, Acquired hypothyroidism E03.[address] [facility] [id number], [place] [address] February, [facility] [address] [facility] [address] [id number] [address] February, Anemia in chronic illness D63.8 and Acquired hypothyroidism E03.[address] [facility] [id number], [place] [address] February, Acquired hypothyroidism E03.9 and Anemia in chronic illness D63.[address] [facility] [id number], [place] [address] February, Cervical stenosis of spinal canal M48.[address] [facility] [id number] [address] February, [facility] [address] [id number] [place] [address] Jan, [facility] [address] [id number] [place] [address] Jan, Moderate episode of recurrent major depressive disorder F33.[address] [facility] [address] [id number] [place] [address] Jan, [facility] [address] [id number] [place] [address] Jan, Abscess of groin, right L02.[address] [facility] [address] [id number] [place] [address] Jan, Abscess of right groin L02.[address] [facility] [address] [id number] [place] [address] May, [facility] [address] [id number] [place] [address] May, [facility] [id number], [place] [address] May, Anemia in chronic illness D63.8 and Acquired hypothyroidism E03.[address] [facility] [id number], [place] [id number] May, Dysthymia F34.[address] [facility] [address] [id number] [place] [address] May, Acquired hypothyroidism E03.9 and Frail elderly R54 [facility] [address] [id number] [place] [id number] Jan, Hypothyroidism E03.[address] [facility] [address] [id number] [place] [address] Dec, [facility] [address] [id number] [place] [address] Jul, [facility] [address] [id number] [place] [address] Jun, [facility] [id number] [address] Jun, Spinal stenosis of lumbar region 724.02 ; Chronic lymphocytic thyroiditis 245.2 ; Abnormal CT of the chest 793.2 and Abnormal weight loss 783.21 [facility] [id number], [place] [id number] Apr, Dental examination V72.2 [facility] [place] [address] [id number][place] [id number] Apr, [facility] [address] [id number], [place] [address] Apr, Spinal stenosis of lumbar region 724.02 and Chronic lymphocytic thyroiditis 245.2 [facility] [id number], [place] [id number] Apr, [facility] [id number], [place] [address] Apr, [facility] [id number], [place] [address] Apr, [place] [address] [facility] [id number] [address] Mar, [id number] [address] Mar, [facility] [id number], [place] [address] Mar, Spinal stenosis of lumbar region 724.02 ; Chronic lymphocytic thyroiditis 245.2 and Noncompliance with therapeutic plan V15.81 [facility] [address] [facility] [address] [id number], [place] [address] February, [facility] [id number], [place] [address] February, [facility] [id number], [place] [address] February, Chronic lymphocytic thyroiditis 245.2 [facility] [address] [facility] [id number] [address], [place] [id number] Jan, [facility] [place] [facility] [address] [facility] [address] [id number] [place] [address] 14 Jan, 2015 [facility] [place] [facility] [address] [facility] [address] [id number] [place] [address] Jan, [facility] [place] [facility] [address] [facility] [address] [id number] [place] [address] Dec, [facility] [place] [facility] [address] [facility] [address] [id number] [place] [address] Dec, [facility] [place] [facility] [address] [facility] [address] [id number], [place] [address] Dec, [facility] [place] [facility] [address] [facility] [address] [id number], [place] [address] Dec, [facility] [place] [facility] [address] [facility] [address] [id number], [place] [address] Dec, [facility] [place] [facility] [address] [facility] [address] [id number], [place] [address] Dec, [facility] [place] [facility] [address] [id number], [place] [address] Dec, [facility] [place] [facility] [address] [id number], [place] [address] Dec, [facility] [place] [facility] [address] [facility] [address] [id number], [place] [address] Dec, [facility] [place] [facility] [address] [facility] [address] [id number], [place] [address] Dec, [facility] [place] [facility] [address] [facility] [address] [id number], [place] [address] Nov, [facility] [place] [facility] [address] [facility] [address] [id number] [address] Nov, [facility] [place] [facility] [address] [id number], [place] [address] Nov, [facility] [address] [id number] [place] [address] Nov, [facility] [place] [facility] [address] [id number] [place] [address] Oct, [facility] [address] [id number] [place] [address] Oct, [facility] [place] [facility] [address] [id number] [place] [address] Oct, [facility] [address] [id number] [place] [address] Sep, [facility] [place] [facility] [address] [id number] [place] [address] Sep, [facility] [address] [id number] [place] [address] Sep, [facility] [place] [facility] [address] [id number] [place] [address] Sep, [facility] [address] [id number] [place] [address] Sep, [facility] [place] [facility] [address] [facility] [address] [id number] [place] [address] Sep, [facility] [place] [facility] [address] [id number] [place] [address] Sep, [facility] [place] [facility] [address] [id number] [place] [address]- [address] Sep, [facility] [place] [facility] [address] [id number] [place] [address]- [address] Sep, [facility] [place] [facility] [address] [id number] [place] [address] Sep, [facility] [place] [facility] [address] [facility] [address] [id number] [place] [address] Sep, [facility] [place] [facility] [address] [id number] [place] [address] Sep, [facility] [place] [facility] [address] [id number] [place] [address]- 1789 Sep, [facility] [place] [facility] [address] [id number] [place] [address]- [address] Sep, [facility] [place] [facility] [address] [id number] [place] [address]14 Aug, [facility] [place] [facility] [address] [id number] [place] [address] Aug, [facility] [place] [facility] [address] [id number] [place] [address] Aug, [facility] [place] [facility] [address] [id number] [place] [address] Aug, [facility] [place] [facility] [address] [id number] [place] [address] Aug, [facility] [place] [facility] [address] [id number] [place] [address] Aug, [facility] [place] [facility] [address] [id number] [place] [address] Aug, [facility] [place] [facility] [address] [id number] [place] [address]- [address] Aug, [facility] [place] [facility] [address] [id number] [place] [address]- [address] Aug, [facility] [place] [facility] [address] [id number] [place] [address]- [address] Aug, [facility] [place] [facility] [address] [id number] [place] [address]- [address]99 Jul, [facility] [place] [facility] [address] [id number] [place] [address]- [address] Jul, [facility] [place] [facility] [address] [id number] [place] [address] Jul, [facility] [address] [facility] [address] [id number], [place] [address] Jul, [facility] [address] [facility] [address] [id number], [place] [address] Jul, [facility] [address] [facility] [address] [id number], [place] [address] Jul, [facility] [address] [id number], [place] [address] Jul, [facility] [address] [facility] [address] [id number], [place] [address] Jul, [facility] [address] [facility] [address] [id number], [place] [address] Jul, [facility] [address] [facility] [address] [id number], [place] [address] Jul, [facility] [address] [facility] [address] [id number], [place] [address] Jul, [facility] [address] [facility] [address] [id number], [place] [address] Jul, [facility] [address] [facility] [address] [id number], [place] [address] Jul, [facility] [address] [facility] [address] [id number], [place] [address] Jul, IMMUNIZATIONS No Known Immunizations SOCIAL HISTORY Never Assessed REASON FOR VISIT PLAN OF CARE VITAL SIGNS MEDICATIONS Unknown [...]
--- OUTSIDE RECORDS SUMMARY | 2018-02-08 22:39 | XMS REPORT ---
Author JAIDA Rodriguez [facility] eClinical[employer] Address Unknown Phone Unavailable Care Team Providers Care Call Person Name Role Phone JAIDA ACE Unavailable Allergies No Known Allergies Problems Problem Type Condition Code Onset Dates Condition Status Problem Unspecified viral hepatitis C without hepatic coma 070.70 Active Problem Unspecified curvature of spine associated with other condition 737.9 Active Problem Unspecified anemia 285.9 Active Problem Degeneration of cervical intervertebral disc 722.4 Active Problem Chronic lymphocytic thyroiditis 245.2 Active Problem Nondependent tobacco use disorder 305.1 Active Problem Spinal stenosis of lumbar region 724.02 Active Problem Hyposmolality and/or hyponatremia 276.1 Active Problem Chronic hepatitis C without mention of hepatic coma 070.54 Active Problem Other specified drug dependence, unspecified abuse 304.60 Active Problem Nondependent alcohol abuse, 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
--- OUTSIDE RECORDS SUMMARY | 2018-02-08 22:39 | XMS REPORT ---
Author Author MARIANA JANEEN [facility] Address [address] [place] [address] Care Team Providers Care Rack Puncher Name Role Phone JANEEN PEÑA Unavailable PROBLEMS Type Condition ICD9-CM Code SZE78-UG Code Onset Dates Condition Status SNOMED Code Problem Age-related cognitive decline R41.81 Active 739485946 Problem Low back pain M54.5 Active 201094336 Problem Cervical stenosis of spinal canal M48.02 Active 01333172 Problem Autoimmune thyroiditis E06.3 Active 98244225 Problem Chronic pain due to trauma G89.21 Active 633069953 Problem Hearing loss, unspecified hearing loss type, unspecified laterality H91.90 Active 08020187 Problem Blind H54.7 Active 511992838 Problem Other chronic pain G89.29 Active 66252678 Problem Chronic hepatitis C without hepatic coma B18.2 Active 043021504 Problem Acquired hypothyroidism E03.9 Active 560008310 Problem Anemia in chronic illness D63.8 Active 903449929 Problem Abscess of groin, right L02.214 Active 70575841 Problem Frail elderly R54 Active 096023312 Problem Moderate episode of recurrent major depressive disorder F33.1 Active 178717532 Problem Dysthymia F34.1 Active 06165739 Problem High risk medication use Z79.899 Active [id number] ALLERGIES No Information ENCOUNTERS Encounter Location Date Diagnosis [facility] [address] [id number], [place] [address] Jan, Cervical stenosis of spinal canal M48.02 [facility] [id number] [place] [address] Jan, Cervical stenosis of spinal canal M48.02 [facility] [address] [id number], [place] [address] Dec, Cervical stenosis of spinal canal M48.02 [facility] [address] [facility] [id number], [place] [address] Dec, Cervical stenosis of spinal canal M48.02 [address] [facility] [place] [id number], [place] [address] 20 Dec, 2017 Cervical stenosis of spinal canal M48.02 and Spinal stenosis , lumbosacral region M48.07 [facility] [address] [place] [address] 15 Dec, 2017 Encounter for examination for admission to shelter Z02.2 ; Spinal stenosis, lumbosacral region M48.07 [...] Z72.0 and Neglected elder, initial encounter T74.01XA [facility] [address] [facility] [place] [id number], [place] [address] 14 Dec, [address] [facility] [address] [id number][place] [address] Dec, High risk medication use Z79.899 ; Cervical stenosis of spinal canal M48.02 ; Frail elderly R54 and Age-related cognitive decline R41.[address] [facility] [address] [id number][place] [address] Dec, [facility] [address] [id number][place] [address] Dec, [facility] [address] [id number][place] [address] Aug, [facility] [address] [id number] [place] [id number] Jul, [facility] [address] [id number][place] [address] Jun, High risk medication use Z79.[address] [facility] [address] [id number] [place] [id number] Jun, [facility] [address] [id number][place] [address] May, [facility] [address] [id number][place] [address] May, High risk medication use Z79.[address] [facility] [address] [id number][place] [id number] May, [facility] [address] [id number], [place] [address] May, Acquired hypothyroidism E03.[address] [facility] [address] [id number][place] [address] May, Acquired hypothyroidism E03.[address] [facility] [address] [id number][place] [address] May, High risk medication use Z79.899 [facility] [address] [facility] [place] [id number] [address] Apr, [facility] [address] [id number][place] [address] Apr, [facility] [address] [id number], [place] [address] Apr, Cervical stenosis of spinal canal M48.[address] [facility] [address] [id number][place] [address] Apr, High risk medication use Z79.[address] [facility] [address] [id number][place] [address] Mar, High risk medication use Z79.899 ; Cervical stenosis of spinal canal M48.02 and Low back pain M54.[address] [facility] [address] [id number][place] [id number] Mar, [facility] [address] [id number] [place] [id number] Mar, [facility] [address] [id number] [place] [address] Mar, High risk medication use Z79.[address] [facility] [address] [id number] [place] [id number] February, [facility] [address] [id number] [place] [address] February, [facility] [address] [id number], [place] [address] February, [facility] [address] [id number], [place] [address] February, [facility] [address] [id number], [place] [address] February, [facility] [address] [id number], [place] [address] February, [facility] [address] [id number][place] [address] February, High risk medication use Z79.899 ; Cervical stenosis of spinal canal M48.02 ; Abscess of groin, right L02.214 and Age-related cognitive decline R41.[address] [facility] [address] [id number] [place] [address] February, [facility] [address] [id number], [place] [address] February, Acquired hypothyroidism E03.9 [facility] [address] [id number] [place] [address] February, [facility] [address] [facility] [place] [id number] [place] [address] February, Anemia in chronic illness D63.8 and Acquired hypothyroidism E03.[address] [facility] [address] [id number][place] [id number] February, Acquired hypothyroidism E03.9 and Anemia in chronic illness D63.[address] [facility] [address] [id number] [place] [address] February, Cervical stenosis of spinal canal M48.[address] [facility] [address] [id number] [place] [address] February, [facility] [address] [id number] [place] [address] Jan, [facility] [address] [id number] [place] [address] Jan, Moderate episode of recurrent major depressive disorder F33.[address] [facility] [address] [id number] [place] [id number] Jan, [facility] [address] [id number], [place] [address] Jan, Abscess of groin, right L02.[address] [facility] [address] [id number], [place] [address] Jan, Abscess of right groin L02.214 [facility] [address] [id number][place] [address] May, [facility] [address] [id number], [place] [address] May, [facility] [address] [id number], [place] [address] May, Anemia in chronic illness D63.8 and Acquired hypothyroidism E03.[address] [facility] [address] [id number], [place] [address] May, Dysthymia F34.[address] [facility] [address] [id number][place] [address] May, Acquired hypothyroidism E03.9 and Frail elderly R54 [facility] [address] [id number] [place] [address] Jan, Hypothyroidism E03.[address] [facility] [address] [id number], [place] [address] Dec, [facility] [address] [id number][place] [address] Jul, [facility] [address] [id number][place] [address] Jun, [facility] [address] [id number], [place] [address] Jun, Spinal stenosis of lumbar region 724.02 ; Chronic lymphocytic thyroiditis 245.2 ; Abnormal CT of the chest 793.2 and Abnormal weight loss 783.21 [facility] [address] [id number][place] [id number] Apr, Dental examination V72.2 [facility] [address] [facility] [id number] [place] [id number] Apr, [facility] [address] [id number], [place] [address] Apr, Spinal stenosis of lumbar region 724.02 and Chronic lymphocytic thyroiditis 245.2 [facility] [address] [id number], [place] [address] Apr, [facility] [address] [id number], [place] [address] Apr, [facility] [address] [id number], [place] [address] Apr, [address] [id number][place] [address] Mar, [address] [id number][place] [address] Mar, [facility] [address] [id number], [place] [address] Mar, Spinal stenosis of lumbar region 724.02 ; Chronic lymphocytic thyroiditis 245.2 and Noncompliance with therapeutic plan V15.81 [facility] [address] [facility] [place] [id number], [place] [address] February, [facility] [address] [id number], [place] [id number] February, [facility] [address] [id number], [place] [address] February, Chronic lymphocytic thyroiditis 245.[address] [facility] [address] [id number], [place] [address]903 Jan, [facility] [place] [facility] [address] [facility] [id number], [place] [address] Jan, [facility] [place] [facility] [address] [id number], [place] [address] Jan, [facility] [place] [facility] [address] [id number], [place] [address] Dec, [facility] [place] [facility] [address] [id number] [address] Dec, [facility] [place] [facility] [address] [id number], [place] [address] Dec, [facility] [place] [facility] [address] [id number] [place] [address] Dec, [facility] [place] [facility] [address] [id number], [place] [address] Dec, [facility] [place] [facility] [address] [id number], [place] [address] Dec, [facility] [place] [facility] [address] [id number], [place] [address] Dec, [facility] [place] [facility] [address] [facility] [id number], [place] [address] Dec, [facility] [place] [facility] [address] [id number], [place] [address] Dec, [facility] [place] [facility] [address] [id number], [place] [address] Dec, [facility] [place] [facility] [address] [id number] [place] [address] Nov, [facility] [place] [facility] [address] [id number] [place] [address]- [address] Nov, [facility] [place] [facility] [address] [id number] [place] [address]- [address] Nov, [facility] [place] [facility] [address] [id number] [place] [address]- [address] Nov, [facility] [place] [facility] [address] [id number] [place] [address]- [address] Oct, [facility] [place] [facility] [address] [id number] [place] [address]- [address] Oct, [facility] [place] [facility] [address] [id number] [place] [address]- [address] Oct, [facility] [place] [facility] [address] [id number] [place] [address]- [address] Sep, [facility] [place] [facility] [address] [id number] [place] [address]- [address] Sep, [facility] [place] [facility] [address] [id number] [place] [address]- [address] Sep, [facility] [place] [facility] [address] [id number] [place] [address] Sep, [facility] [place] [facility] [address] [id number] [place] [address]- [address] Sep, [facility] [place] [facility] [address] [id number] [place] [address]- [address] Sep, [facility] [place] [facility] [address] [id number] [place] [address]- [address] Sep, [facility] [place] [facility] [address] [id number] [place] [address]- [address] Sep, [facility] [place] [facility] [address] [id number], [place] [address] 15 Sep, 2014 [facility] [place] [facility] [address] [id number] [place] [address] 15 Sep, 2014 [facility] [place] [facility] [address] [id number] [place] [address]- [address] Sep, [facility] [place] [facility] [address] [facility] [id number] [place] [address]- [address] Sep, [facility] [place] [facility] [address] [id number] [place] [address]- [address] Sep, [facility] [place] [facility] [address] [id number] [place] [address] Sep, [facility] [place] [facility] [address] [id number] [place] [address] Aug, [facility] [place] [facility] [address] [id number] [place] [address]- [address]798 Aug, [facility] [place] [facility] [address] [id number] [place] [address]- [address] Aug, [facility] [place] [facility] [address] [id number] [place] [address] Aug, [facility] [place] [facility] [address] [facility] [id number] [place] [address] Aug, [facility] [place] [facility] [address] [id number] [place] [address]- [address] Aug, [facility] [place] [facility] [address] [id number], [place] [address] Aug, [facility] [place] [facility] [address] [id number] [place] [address] Aug, [facility] [place] [facility] [address] [facility] [id number] [place] [address]- [address] Aug, [facility] [place] [facility] [address] [facility] [id number] [place] [address]- [address] Aug, [facility] [place] [facility] [address] [id number], [place] [address] Jul, [facility] [address] [id number], [place] [address] Jul, [facility] [address] [facility] [id number], [place] [address]- [address] Jul, [facility] [address] [id number], [place] [address]- [address] Jul, [facility] [address] [id number], [place] [address] Jul, [facility] [address] [facility] [id number], [place] [address] Jul, [facility] [address] [facility] [id number], [place] [address] Jul, [facility] [address] [facility] [id number], [place] [address] Jul, [facility] [address] [facility] [id number], [place] [address]- [address] Jul, [facility] [address] [facility] [id number], [place] [address] Jul, [facility] [address] [facility] [id number], [place] [address] Jul, [facility] [address] [facility] [id number], [place] [address] Jul, [facility] [address] [facility] [id number], [place] [address] Jul, [facility] [address] [facility] [id number], [place] [address] Jul, IMMUNIZATIONS No Known Immunizations SOCIAL HISTORY Never Assessed REASON FOR VISIT phone call PLAN OF CARE VITAL SIGNS MEDICATIONS Unknown [...]
--- OUTSIDE RECORDS SUMMARY | 2018-02-08 22:39 | XMS REPORT ---
Author Author CHANTALE CAMPOS Organization [employer] Address Unknown Phone Unavailable Care Team Providers Care Bowling Ball Assembler Name Role Phone CHANTALE CAMPOS Unavailable Allergies No Known Allergies Problems Problem Type Condition Code Onset Dates Condition Status Problem Unspecified curvature of spine associated with other condition 737.9 Active Problem Hyposmolality and/or hyponatremia 276.1 Active Problem Chronic hepatitis C without mention of hepatic coma 070.54 Active Assessment Dysthymia F34.1 Active Problem Acquired hypothyroidism E03.9 Active Problem Frail elderly R54 Active Problem Dysthymia F34.1 Active Problem Other specified drug dependence, unspecified abuse 304.60 Active Problem Nondependent alcohol abuse, 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
--- OUTSIDE RECORDS SUMMARY | 2018-02-08 22:40 | XMS REPORT ---
Author Author JANEEN PEÑA Organization [employer] Address Unknown Phone Unavailable Care Team Providers Care Continuous Drier Helper Name Role Phone JANEEN PEÑA Unavailable Allergies [...] Date End Date Status Dosage Levothyroxine Sodium [facility] [id number] 100 MCG Orally Once a day 1 tablet Results No Known Results Summary Purpose [employer] Submission
--- OUTSIDE RECORDS SUMMARY | 2018-02-08 22:40 | XMS REPORT ---
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 Phone JANEEN PEÑA Unavailable PROBLEMS Type Condition ICD9-CM Code PTS29-GX Code Onset Dates Condition Status SNOMED Code Problem Age-related cognitive decline R41.81 Active 643273493 Problem Low back pain M54.5 Active 135851067 Problem Cervical stenosis of spinal canal M48.02 Active 98021061 Problem Autoimmune thyroiditis E06.3 Active 00212796 Problem Chronic pain due to trauma G89.21 Active 996610306 Problem Hearing loss, unspecified hearing loss type, unspecified laterality H91.90 Active 93301336 Problem Blind H54.7 Active 815867301 Problem Other chronic pain G89.29 Active 42809230 Problem Chronic hepatitis C without hepatic coma B18.2 Active 212318142 Problem Acquired hypothyroidism E03.9 Active 927818208 Problem Anemia in chronic illness D63.8 Active 289243306 Problem Abscess of groin, right L02.214 Active 46505553 Problem Frail elderly R54 Active 438820981 Problem Moderate episode of recurrent major depressive disorder F33.1 Active 908954007 Problem Dysthymia F34.1 Active 44178690 Problem High risk medication use Z79.899 Active [id number] ALLERGIES No Information ENCOUNTERS Encounter Location Date Diagnosis [facility] [address] [id number] [address] Jan, Cervical stenosis of spinal canal M48.02 [facility] [id number] [place] [address] Jan, Cervical stenosis of spinal canal M48.02 [facility] [address] [id number] [address] Dec, Cervical stenosis of spinal canal M48.02 [facility] [address] [id number] [place] [address] Dec, Cervical stenosis of spinal canal M48.02 [place] [address] [id number] [place] [address] 20 Dec, 2017 Cervical stenosis of spinal canal M48.02 and Spinal stenosis , lumbosacral region M48.07 [employer] [facility] [address] [place] [address] 15 Dec, 2017 Encounter for examination for admission to alf Z02.2 ; Spinal stenosis, lumbosacral region M48.07 [...] Z72.0 and Neglected elder, initial encounter T74.01XA [facility] [address] [id number] [place] [address] 14 Dec, [address] [facility] [address] [id number][place] [id number] Dec, High risk medication use Z79.899 ; Cervical stenosis of spinal canal M48.02 ; Frail elderly R54 and Age-related cognitive decline R41.[address] [facility] [address] [id number][place] [address] Dec, [facility] [address] [id number][place] [address] Dec, [facility] [address] [id number][place] [address] Aug, [facility] [address] [id number] [place] [address] Jul, [facility] [address] [id number][place] [address] Jun, High risk medication use Z79.[address] [facility] [address] [id number] [place] [address] Jun, [facility] [address] [id number][place] [address] May, [facility] [address] [address] [id number][place] [address] May, High risk medication use Z79.[address] [facility] [address] [id number][place] [address] May, [facility] [address] [id number][place] [address] May, Acquired hypothyroidism E03.[address] [facility] [address] [id number][place] [address] May, Acquired hypothyroidism E03.[address] [facility] [address] [id number][place] [address] May, High risk medication use Z79.899 [facility] [address] [id number] [place] [address] Apr, [facility] [address] [id number][place] [address] Apr, [facility] [address] [address] [id number], [place] [address] Apr, Cervical stenosis of spinal canal M48.[address] [facility] [address] [id number], [place] [address] Apr, High risk medication use Z79.[address] [facility] [address] [id number][place] [address] Mar, High risk medication use Z79.899 ; Cervical stenosis of spinal canal M48.02 and Low back pain M54.[address] [facility] [address] [id number], [place] [address] Mar, [facility] [address] [id number] [place] [address] Mar, [facility] [address] [id number] [place] [id number] Mar, High risk medication use Z79.[address] [facility] [address] [id number] [place] [address] February, [facility] [address] [id number] [place] [address] February, [facility] [address] [address] [id number], [place] [address] February, [facility] [address] [id number], [place] [address] February, [facility] [address] [id number][place] [address]86[address] February, [facility] [address] [id number], [place] [address] February, [facility] [address] [id number], [place] [address] February, High risk medication use Z79.899 ; Cervical stenosis of spinal canal M48.02 ; Abscess of groin, right L02.214 and Age-related cognitive decline R41.[address] [facility] [address] [id number] [place] [address] February, [facility] [address] [address] [id number], [place] [address] February, Acquired hypothyroidism E03.9 [facility] [address] [id number] [place] [address] February, [facility] [address] [id number] [place] [address] February, Anemia in chronic illness D63.8 and Acquired hypothyroidism E03.[address] [facility] [address] [id number], [place] [address] February, Acquired hypothyroidism E03.9 and Anemia in chronic illness D63.[address] [facility] [address] [id number] [place] [address] February, Cervical stenosis of spinal canal M48.[address] [facility] [address] [id number] [place] [address] February, [facility] [address] [id number] [place] [address] Jan, [facility] [id number] [place] [address] Jan, Moderate episode of recurrent major depressive disorder F33.[address] [facility] [address] [id number] [place] [address] Jan, [facility] [address] [id number], [place] [address] Jan, Abscess of groin, right L02.[address] [facility] [address] [id number], [place] 387[address]4465 Jan, Abscess of right groin L02.214 [facility] [address] [id number], [place] [id number] May, [facility] [address] [address] [id number], [place] [address] May, [facility] [address] [id number], [place] [address] May, Anemia in chronic illness D63.8 and Acquired hypothyroidism E03.[address] [facility] [address] [id number], [place] 167886[address] May, Dysthymia F34.[address] [facility] [address] [id number], [place] 37[address]906[address] May, Acquired hypothyroidism E03.9 and Frail elderly R54 [facility] [address] [id number] [place] [id number] Jan, Hypothyroidism E03.[address] [facility] [address] [id number], [place] 1966[address]197 Dec, [facility] [address] [id number], [place] [address] Jul, [facility] [address] [id number], [place] [address] Jun, [facility] [address] [id number], [place] [address] Jun, Spinal stenosis of lumbar region 724.02 ; Chronic lymphocytic thyroiditis 245.2 ; Abnormal CT of the chest 793.2 and Abnormal weight loss 783.21 [facility] [address] [id number], [place] [id number] Apr, Dental examination V72.2 [facility] [address] [facility] [id number], [place] [address] Apr, [facility] [address] [id number], [place] [address] Apr, Spinal stenosis of lumbar region 724.02 and Chronic lymphocytic thyroiditis 245.2 [facility] [address] [id number], [place] [address]7665 Apr, [facility] [address] [id number], [place] [id number] Apr, [facility] [address] [id number], [place] [id number] Apr, [address] [id number] [place] [address] Mar, [address] [id number] [place]OU[place] [address] Mar, [facility] [address] [id number], [place] [address]698[address] Mar, Spinal stenosis of lumbar region 724.02 ; Chronic lymphocytic thyroiditis 245.2 and Noncompliance with therapeutic plan V15.81 [facility] [address] [id number] [address] February, [facility] [address] [id number], [place] 179780471 February, [facility] [address] [address] [id number], [place] 9[address]288[address] February, Chronic lymphocytic thyroiditis 245.[address] [facility] [address] [id number], [place] [address]23450[address] Jan, [facility] [facility] [address] [id number] [address] Jan, [facility] [place] [facility] [address] [id number] [address] Jan, [facility] [place] [facility] [address] [id number] [address] Dec, [facility] [place] [facility] [address] [id number] [address] Dec, [facility] [place] [facility] [address] [id number] [address] Dec, [facility] [place] [facility] [address] [id number] [place] [address] Dec, [facility] [place] [facility] [address] [id number] [address] Dec, [facility] [facility] [address] [id number] [address] Dec, [facility] [place] [facility] [address] [id number] [address] Dec, [facility] [place] [facility] [address] [id number] [place] [address] Dec, [facility] [place] [facility] [address] [id number] [address] Dec, [facility] [place] [facility] [address] [id number] [address] Dec, [facility] [place] [facility] [address] [id number] [place] [address] Nov, [facility] [place] [facility] [address] [id number] [place] [address]- [address] Nov, [facility] [place] [facility] [address] [id number] [place] [address]- [address] Nov, [facility] [place] [facility] [address] [id number] [place] [address]- [address] Nov, [facility] [place] [facility] [address] [id number] [place] [address]- [address] Oct, [facility] [place] [facility] [address] [id number] [place] [address]- [address] Oct, [facility] [place] [facility] [address] [id number] [place] [address]- [address] Oct, [facility] [place] [facility] [address] [id number] [place] [address]- [address] Sep, [facility] [place] [facility] [address] [id number] [place] [address]- [address] Sep, [facility] [place] [facility] [address] [id number] [place] [address]- [address] Sep, [facility] [place] [facility] [address] [id number] [place] [address]- [address] Sep, [facility] [place] [facility] [address] [id number] [place] [address]- [address] Sep, [facility] [place] [facility] [address] [id number] [place] [address]- [address] Sep, [facility] [place] [facility] [address] [id number] [place] [address]- [address] Sep, [facility] [place] [facility] [address] [id number] [place] [address]- [address] Sep, [facility] [place] [facility] [address] [id number] [place] [address] 15 Sep, 2014 [facility] [place] [facility] [address] [id number] [place] [address]- [address] 15 Sep, 2014 [facility] [place] [facility] [address] [id number] [place] [address]- [address] Sep, [facility] [place] [facility] [address] [id number] [place] [address]- [address] Sep, [facility] [place] [facility] [address] [id number] [place] [address]- [address]67 Sep, [facility] [place] [facility] [address] [id number] [place] [address]- [address] Sep, [facility] [place] [facility] [address] [id number] [place] [address]- [address] Aug, [facility] [place] [facility] [address] [id number] [place] [address]- [address] Aug, [facility] [place] [facility] [address] [id number] [place] [address]- [address] Aug, [facility] [place] [facility] [address] [id number] [place] [address]- [address] Aug, [facility] [place] [facility] [address] [id number] [place] [address]- [address] Aug, [facility] [place] [facility] [address] [id number] [place] [address]- [address] Aug, [facility] [place] [facility] [address] [id number] [address]- [address] Aug, [facility] [place] [facility] [address] [id number] [place] [address]- [address] Aug, [facility] [place] [facility] [address] [id number] [place] [address]- [address]31 Aug, [facility] [place] [facility] [address] [id number] [place] [address]- [address] Aug, [facility] [place] [facility] [address] [id number] [place] [address] Jul, [facility] [address] [id number] [place] [address] Jul, [facility] [address] [id number] [place] [address] Jul, [facility] [address] [id number] [place] [address]- [address] Jul, [facility] [address] [id number] [place] [address]- [address] Jul, [facility] [address] [id number] [place] [address]- [address] Jul, [facility] [address] [id number] [place] [address]- [address] Jul, [facility] [address] [id number] [place] [address]- [address] Jul, [facility] [address] [id number] [place] [address] Jul, [facility] [address] [id number] [place] [address] Jul, [facility] [address] [id number] [address] Jul, [facility] [address] [id number] [place] [address]- [address] Jul, [facility] [address] [id number] [place] [address] Jul, [facility] [address] [id number] [address] Jul, IMMUNIZATIONS No Known Immunizations SOCIAL HISTORY Never Assessed REASON FOR VISIT Controlled Refill Requests PLAN OF CARE VITAL SIGNS MEDICATIONS Medication Instructions Dosage Frequency Start Date End Date Duration Status Ultram 50 mg Orally 3 times a day 1 tablet as needed 8h February, Active MS Contin 30 MG Orally every 12 hrs 1 tablet 12h 09 Feb, 2017 Active RESULTS No Results PROCEDURES No Known [...]
--- OUTSIDE RECORDS SUMMARY | 2018-02-08 22:40 | XMS REPORT ---
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 Phone MARIANA JANEEN Unavailable PROBLEMS Type Condition ICD9-CM Code LQD97-YP Code Onset Dates Condition Status SNOMED Code Problem Frail elderly R54 Active 904185707 Problem Anemia in chronic illness D63.8 Active 276133382 Problem Dysthymia F34.1 Active 57790847 Problem Acquired hypothyroidism E03.9 Active 478328946 Problem Low back pain M54.5 Active 015051700 Problem Cervical stenosis of spinal canal M48.02 Active 14761745 Problem Moderate episode of recurrent major depressive disorder F33.1 Active 568971751 Problem Abscess of groin, right L02.214 Active 98305580 Problem Age-related cognitive decline R41.81 Active 543406020 Problem High risk medication use Z79.899 Active [id number] ALLERGIES No Information SOCIAL HISTORY Never Assessed [...]
--- OUTSIDE RECORDS SUMMARY | 2018-02-08 22:40 | XMS REPORT | Continuity of Care Document ---
Author Author [facility] Organization [facility] Address Unknown Phone Unavailable Allergies There is no data. Medications There is no data. Problems Date Dx Coded Attending Type Code Diagnosis Diagnosed By 07/25/2014 JAIDA ACE APRN 304.60 POLYSUBSTANCE DEPENDENCE 07/25/2014 JAIDA ACE APRN 305.00 ALCOHOL ABUSE 07/25/2014 JAIDA ACE APRN 305.1 NICOTINE DEPENDENCE 07/25/2014 JAIDA ACE APRN 553.1 UMBILICAL HERNIA WITHOUT OBSTRUCTION OR GANGRENE 07/25/2014 JAIDA ACE APRN 723.1 CERVICALGIA 07/25/2014 JAIDA ACE APRN 724.2 lower back pain 07/25/2014 JAIDA ACE APRN V65.42 Patient Education - Alcohol 07/25/2014 BOUCHRA HAYWARD DO 304.60 POLYSUBSTANCE DEPENDENCE 07/25/2014 BOUCHRA HAYWARD DO 305.00 ALCOHOL ABUSE 07/25/2014 BOUCHRA HAYWARD DO 305.1 NICOTINE DEPENDENCE 07/25/2014 BOUCHRA HAYWARD DO 553.1 UMBILICAL HERNIA WITHOUT OBSTRUCTION OR GANGRENE 07/25/2014 BOUCHRA HAYWARD DO 723.1 CERVICALGIA 07/25/2014 BOUCHRA HAYWARD DO 724.2 lower back pain 07/25/2014 BOUCHRA HAYWARD DO V65.42 Patient Education - Alcohol 07/25/2014 JAIDA ACE APRN 304.60 POLYSUBSTANCE DEPENDENCE 07/25/2014 JAIDA ACE APRN 305.00 ALCOHOL ABUSE 07/25/2014 JAIDA ACE APRN 305.1 NICOTINE DEPENDENCE 07/25/2014 JAIDA ACE APRN 553.1 UMBILICAL HERNIA WITHOUT OBSTRUCTION OR GANGRENE 07/25/2014 JAIDA ACE APRN 723.1 CERVICALGIA 07/25/2014 JAIDA ACE APRN 724.2 lower back pain 07/25/2014 JAIDA ACE APRN V65.42 Patient Education - Alcohol 07/25/2014 JAIDA ACE APRN 304.60 POLYSUBSTANCE DEPENDENCE 07/25/2014 JAIDA ACE APRN 305.00 ALCOHOL ABUSE 07/25/2014 JAIDA ACE APRN 305.1 NICOTINE DEPENDENCE 07/25/2014 JAIDA ACE APRN 553.1 UMBILICAL HERNIA WITHOUT OBSTRUCTION OR GANGRENE 07/25/2014 JAIDA ACE APRN 723.1 CERVICALGIA 07/25/2014 JAIDA ACE APRN 724.2 lower back pain 07/25/2014 JAIDA ACE APRN V65.42 Patient Education - Alcohol 07/25/2014 JAIDA ACE APRN 304.60 POLYSUBSTANCE DEPENDENCE 07/25/2014 JAIDA ACE APRN 305.00 ALCOHOL ABUSE 07/25/2014 JAIDA ACE APRN 305.1 NICOTINE DEPENDENCE 07/25/2014 JAIDA ACE APRN 553.1 UMBILICAL HERNIA WITHOUT OBSTRUCTION OR GANGRENE 07/25/2014 JAIDA ACE APRN 723.1 CERVICALGIA 07/25/2014 JAIDA ACE APRN 724.2 lower back pain 07/25/2014 JAIDA ACE APRN V65.42 Patient Education - Alcohol 07/25/2014 CHESTER LEBRON DO 304.60 POLYSUBSTANCE DEPENDENCE 07/25/2014 CHESTER LEBRON DO 305.00 ALCOHOL ABUSE 07/25/2014 CHESTER LEBRON DO 305.1 NICOTINE DEPENDENCE 07/25/2014 CHESTER LEBRON DO 553.1 UMBILICAL HERNIA WITHOUT OBSTRUCTION OR GANGRENE 07/25/2014 CHESTER LEBRON DO 723.1 CERVICALGIA 07/25/2014 CHESTER LEBRON DO 724.2 lower back pain 07/25/2014 CHESTER LEBRON DO V65.42 Patient Education - Alcohol 07/25/2014 ROBE LABOY MD 304.60 POLYSUBSTANCE DEPENDENCE 07/25/2014 ROBE LABOY MD 305.00 ALCOHOL ABUSE 07/25/2014 ROBE LABOY MD 305.1 NICOTINE DEPENDENCE 07/25/2014 ROBE LABOY MD 553.1 UMBILICAL HERNIA WITHOUT OBSTRUCTION OR GANGRENE 07/25/2014 ROBE LABOY MD 723.1 CERVICALGIA 07/25/2014 ROBE LABOY MD 724.2 lower back pain 07/25/2014 ROBE LABOY MD V65.42 Patient Education - Alcohol 08/07/2014 JAIDA ACE APRN 070.70 HEPATITIS C, UNSPEC 08/07/2014 JAIDA ACE APRN J 244.9 HYPOTHYROIDISM 08/07/2014 JAIDA ACE APRN J 285.9 ANEMIA 08/07/2014 JAIDA ACE APRN J 593.9 RENAL INSUFFICIENCY 08/07/2014 JAIDA ACE APRN J 790.6 ABNORMAL LFT (LIVER FUNCTION TEST) 08/07/2014 JAIDA ACE APRN 070.70 HEPATITIS C, UNSPEC 08/07/2014 JAIDA ACE APRN J 244.9 HYPOTHYROIDISM 08/07/2014 JAIDA ACE APRN J 285.9 ANEMIA 08/07/2014 JAIDA ACE APRN J 593.9 RENAL INSUFFICIENCY 08/07/2014 JAIDA ACE APRN J 790.6 ABNORMAL LFT (LIVER FUNCTION TEST) 08/07/2014 CHESTER LEBRON DO F 070.70 HEPATITIS C, UNSPEC 08/07/2014 CHESTER LEBRON DO F 244.9 HYPOTHYROIDISM 08/07/2014 REMBERTO LEBRON DOEN F 285.9 ANEMIA 08/07/2014 REMBERTO LEBRON DOEN F 593.9 RENAL INSUFFICIENCY 08/07/2014 REMBERTO LEBRON DOEN F 790.6 ABNORMAL LFT (LIVER FUNCTION TEST) 08/07/2014 ROBE LABOY MD 070.70 HEPATITIS C, UNSPEC 08/07/2014 ROBE LABOY MD 244.9 HYPOTHYROIDISM 08/07/2014 ROBE LABOY MD 285.9 ANEMIA 08/07/2014 ROBE LABOY MD 593.9 RENAL INSUFFICIENCY 08/07/2014 ROBE LABOY MD 790.6 ABNORMAL LFT (LIVER FUNCTION TEST) 09/15/2014 JAIDA ACE APRN 550.90 UNILATERAL OR UNSPECIFIED INGUINAL HERNIA WITHOUT OBSTRUCTION OR GANGRENE 09/15/2014 CHESTER LEBRON DO F 550.90 INGUINAL HERNIA ON THE LEFT 09/15/2014 ROBE LABOY MD 550.90 INGUINAL HERNIA ON THE LEFT 10/03/2014 CHESTER LEBRON DO F 070.54 HEPATITIS C CHRONIC 10/03/2014 CHESTER LEBRON DO F 276.1 HYPONATREMIA 10/03/2014 CHESTER LEBRON DO F 737.9 KYPHOSIS/SCOLIOSIS 10/03/2014 CHESTER LEBRON DO F 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 10/03/2014 CHESTER LEBRON DO F 780.93 MEMORY LOSS 10/03/2014 ROBE LABOY MD 070.54 HEPATITIS C CHRONIC 10/03/2014 ROBE LABOY MD 276.1 HYPONATREMIA 10/03/2014 ROBE LABOY MD 737.9 KYPHOSIS/SCOLIOSIS 10/03/2014 ROBE LABOY MD 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 10/03/2014 ROBE LABOY MD 780.93 MEMORY LOSS 12/19/2014 ROBE LABOY MD 338.29 OTHER CHRONIC PAIN 12/19/2014 ROBE LABOY MD 585.9 CHRONIC KIDNEY DISEASE UNSPECIFIED 12/19/2014 ROBE LABOY MD 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 12/22/2014 ROBE LABOY MD 245.2 CHRONIC LYMPHOCYTIC THYROIDITIS 12/22/2014 ROBE LABOY MD 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 12/22/2014 ROBE LABOY MD 722.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 12/22/2014 ROBE LABOY MD 723.0 SPINAL STENOSIS IN CERVICAL REGION 12/22/2014 ROBE LABOY MD 724.02 SPINAL STENOSIS OF LUMBAR REGION WITHOUT NEUROGENIC CLAUDICATION 12/22/2014 ROBE LABOY MD 733.90 DISORDER OF BONE AND CARTILAGE UNSPECIFIED 12/22/2014 ROBE LABOY MD 789.1 HEPATOMEGALY Procedures Code [place] [address] URINE DRUG SCREEN (IN-HOUSE ) 07/25/2014 49813 OXIMETRY 07/25/2014 24263 ROUTINE VENIPUNCTURE 08/05/2014 35689 CMP 08/05/2014 84219 LIPID PANEL 08/05/2014 05866 HEPATITIS PROFILE 08/05/2014 32408 CBC 08/05/2014 38298 HIV ([facility]) 08/05/2014 THYANA THYROID ANALYZER 08/05/2014 64457 ROUTINE VENIPUNCTURE 08/07/2014 46521 ROUTINE VENIPUNCTURE 08/07/2014 02730 PERIPHERAL BLOOD SMEAR W/ PATH REPORT 08/07/2014 4698555 THYROID ANTIBODY GROUP 08/07/2014 76232 PERIPHERAL BLOOD SMEAR W/ PATH REPORT 08/07/2014 06273 AFP TUMOR MARKER 08/07/2014 11156 T4 FREE 08/07/2014 70169 TSH 08/07/2014 59562 FREE ASSAY (FT-3) 08/07/2014 39626 PT/INR 08/07/2014 91980 PT/INR 08/07/2014 04911 T4 FREE 08/07/2014 97992 FREE ASSAY (FT-3) 08/07/2014 7571715 IMMATURE PLATELET FRACTION (RESULT ONLY) 08/07/2014 [id number] COMPLETE BLOOD COUNT NO DIFF (CBC Result) 08/07/2014 90827 DIFFERENTIAL WBC COUNT (CBC DIFF RESULT) 08/07/2014 04248 RETICULOCYTE COUNT 08/07/2014 26478 TSH 08/07/2014 22234 PERIPHERIAL BLOOD SMEAR 08/07/2014 07411 AFP TUMOR MARKER 08/08/2014 [id number] HEMATOLOGY OTHER REPORT 08/08/2014 [id number] THYROID ANTIBODY GROUP 08/08/2014 11543 FOLATE 08/11/2014 77360 FERRITIN 08/12/2014 63842 ROUTINE VENIPUNCTURE 08/27/2014 39298 FOLATE 08/27/2014 16806 GGT 08/27/2014 PRO/CRE URINE PROTEIN TO CREATNINE RATIO 08/27/2014 THYANA THYROID ANALYZER 08/27/2014 30608 US THYROID ULTRASOUND 09/16/2014 22875 US ABDOMINAL ULTRASOUND, COMPLETE 09/16/2014 02135 US THYROID ULTRASOUND 09/23/2014 18499 US ABDOMINAL ULTRASOUND, COMPLETE 09/23/2014 63717 MRI SPINE (CERVICAL) W/O CONTRAST 10/03/2014 40447 MRI SPINE (THORACIC) W/O CONTRAST 10/03/2014 79455 MRI SPINE (LUMBAR) W/O CONTRAST 10/03/2014 34980 MRI ABDOMEN W/O CONTRAST 10/03/2014 01546 CMP 10/03/2014 66005 T4 FREE 10/03/2014 62840 TSH 10/03/2014 40066 T3 TOTAL 10/03/2014 62170 CBC 10/03/2014 IRGROUP IRON GROUP (Iron,TIBC, Ferritin) 10/03/2014 92332 URINE DRUG SCREEN (IN-HOUSE ) 12/29/2014 [place] 01/13/2015 Results Test Result Range TSH+Free T4 - 02/23/17 15:24 TSH 196.100 uIU/mL 0.450-4.500 T4,Free(Direct) 0.16 ng/dL 0.82-1.77 CBC With Differential/Platelet - 02/23/17 15:24 WBC 4.3 x10E3/uL 3.4-10.8 RBC 3.53 x10E6/uL 4.14-5.80 Hemoglobin 10.3 g/dL 12.6-17.7 Hematocrit 31.6 % 37.5-51.0 MCV 90 fL 79-97 MCH 29.2 pg 26.6-33.0 MCHC 32.6 g/dL 31.5-35.7 RDW 16.7 % 12.3-15.4 Platelets 263 x10E3/uL 150-379 Neutrophils 61 % Lymphs 27 % Monocytes 5 % Eos 5 % Basos 1 % Neutrophils (Absolute) 2.7 x10E3/uL 1.4-7.0 Lymphs (Absolute) 1.2 x10E3/uL 0.7-3.1 Monocytes(Absolute) 0.2 x10E3/uL 0.1-0.9 Eos (Absolute) 0.2 x10E3/uL 0.0-0.4 Baso (Absolute) 0.0 x10E3/uL 0.0-0.2 Immature Granulocytes 1 % Immature Grans (Abs) 0.0 x10E3/uL 0.0-0.1 Comp. Metabolic Panel (14) - 02/23/17 15:24 Glucose, Serum 80 mg/dL 65-99 BUN 18 mg/dL 8-27 Creatinine, Serum 1.55 mg/dL 0.76-1.27 eGFR If NonAfricn Am 45 mL/min/1.73 >59 eGFR If Africn Am 52 mL/min/1.73 >59 BUN/Creatinine Ratio 12 10-24 Sodium, Serum 137 mmol/L 134-144 Potassium, Serum 3.6 mmol/L 3.5-5.2 Chloride, Serum 94 mmol/L 96-106 Carbon Dioxide, Total 27 mmol/L 18-29 Calcium, Serum 9.7 mg/dL 8.6-10.2 Protein, Total, Serum 6.8 g/dL 6.0-8.5 Albumin, Serum 3.9 g/dL 3.6-4.8 Globulin, Total 2.9 g/dL 1.5-4.5 A/G Ratio 1.3 1.2-2.2 Bilirubin, Total <0.2 mg/dL 0.0-1.2 Alkaline Phosphatase, S 66 IU/L 39-117 AST (SGOT) 28 IU/L 0-40 ALT (SGPT) 11 IU/L 0-44 Iron and TIBC - 02/23/17 15:24 Iron Bind.Cap.(TIBC) 313 ug/dL 250-450 UIBC 277 ug/dL 111-343 Iron, Serum 36 ug/dL 38-169 Iron Saturation 12 % 15-55 Prothrombin Time (PT) - 02/23/17 15:24 INR 1.1 0.8-1.2 Prothrombin Time 11.2 sec 9.1-12.0 AFP, Serum, Tumor Marker - 02/23/17 15:24 AFP, Serum, Tumor Marker 2.3 ng/mL 0.0-8.3 Encounters ACCT No. Visit Date/Time Discharge Status Pt. Type Provider Facility Loc./Unit Complaint [id number] 07/10/2014 10:04:00 07/10/2014 11:19:00 DIS Emergency [id number] 01/03/2018 10:00:00 01/03/2018 23:59:59 CLS Outpatient JANEEN PEÑA APRN CHCALIS GUZMAN [id number] 02/24/2017 10:09:00 Document Registration [id number] 01/13/2015 09:51:00 01/13/2015 23:59:59 CLS Outpatient ROBE LABOY MD [id number] 10/03/2014 08:29:00 10/03/2014 23:59:59 CLS Outpatient CHESTER LEBRON DO [id number] 09/15/2014 16:04:00 09/15/2014 23:59:59 CLS Outpatient JAIDA ACE APRN [id number] 08/27/2014 14:15:00 08/27/2014 23:59:59 CLS Outpatient JAIDA ACE APRN [id number] 08/07/2014 11:25:00 08/07/2014 23:59:59 CLS Outpatient JAIDA ACE APRN [id number] 08/05/2014 10:54:00 08/05/2014 23:59:59 CLS Outpatient BOUCHRA HAYWARD DO [id number] 07/25/2014 10:56:00 07/25/2014 23:59:59 CLS Outpatient JAIDA ACE APRN
[2018-02-08] MEDS ORDERED: NALOXONE 2 MG/2 ML (NARCAN) SYR ONE (22:49)
[2018-02-08 23:08] LABS: BASOPHILS % (AUTO) 1 % (0-10); EOSINOPHILS # (AUTO) 0.2 10^3/uL (0.0-0.3); EOSINOPHILS % (AUTO) 7 % (0-10); HEMATOCRIT 30 % (40-54); HEMOGLOBIN 9.7 G/DL (13.3-17.7); LYMPHOCYTES # (AUTO) 1.2 X 10^3 (1.0-4.0); LYMPHOCYTES % (AUTO) 34 % (12-44); MEAN CORPUSCULAR HEMOGLOBIN 25 PG (25-34); MEAN CORPUSCULAR HGB CONC 32 G/DL (32-36); MEAN CORPUSCULAR VOLUME 79 FL (80-99); MEAN PLATELET VOLUME 9.2 FL (7.4-10.4); MONOCYTES # (AUTO) 0.5 X 10^3 (0.0-1.0); MONOCYTES % (AUTO) 13 % (0-12); NEUTROPHILS # (AUTO) 1.6 X 10^3 (1.8-7.8); NEUTROPHILS % (AUTO) 46 % (42-75); PLATELET COUNT 232 10^3/uL (130-400); RED BLOOD COUNT 3.82 10^6/uL (4.35-5.85); RED CELL DISTRIBUTION WIDTH 17.6 % (10.0-14.5); WHITE BLOOD COUNT 3.5 10^3/uL (4.3-11.0)
[2018-02-08 23:17] LABS: PROTHROMBIN TIME PATIENT 13.2 SEC (12.2-14.7)
[2018-02-08 23:27] LABS: ALANINE AMINOTRANSFERASE 6 U/L (0-55); ALBUMIN 3.5 GM/DL (3.2-4.5); ALKALINE PHOSPHATASE 75 U/L (40-136); AMMONIA 24 UMOL/L (11-32); BILIRUBIN,TOTAL 0.2 MG/DL (0.1-1.0); BUN/CREATININE RATIO 19; CALCIUM 9.4 MG/DL (8.5-10.1); CARBON DIOXIDE 28 MMOL/L (21-32); CHLORIDE 106 MMOL/L (98-107); GFR ESTIMATED > 60; GLUCOSE 94 MG/DL (70-105); MAGNESIUM 2.1 MG/DL (1.8-2.4); SODIUM 142 MMOL/L (135-145); TOTAL PROTEIN 6.3 GM/DL (6.4-8.2)
[2018-02-08 23:28] LABS: ACETAMINOPHEN < 10 UG/ML (10-30)
[2018-02-08 23:46] LABS: TSH (THYROID ANALYZER) 4.42 UIU/ML (0.35-4.94)
[2018-02-09 00:16] LABS: BILIRUBIN,URINE NEGATIVE (NEGATIVE); CLARITY,URINE CLEAR; COLOR,URINE AMBER; GLUCOSE, URINE (UA) NEGATIVE (NEGATIVE); KETONES,URINE NEGATIVE (NEGATIVE); LEUKOCYTE ESTERASE ,URINE 1+ (NEGATIVE); NITRITE,URINE NEGATIVE (NEGATIVE); PH,URINE 6 (5-9); PROTEIN,URINE 1+ (NEGATIVE); UROBILINOGEN,URINE 1 MG/DL (NORMAL)
[2018-02-09 00:35] LABS: BACTERIA,URINE NEGATIVE /HPF; SQUAMOUS EPITHELIAL CELL,UR 0-2 /HPF; WBC,URINE 0-2 /HPF
[2018-02-09 00:36] LABS: AMPHETAMINE SCREEN, URINE NEGATIVE (NEGATIVE); BARBITURATE SCREEN URINE NEGATIVE (NEGATIVE); BENZODIAZEPINES SCREEN URINE POSITIVE (NEGATIVE); CANNABINOID SCREEN, URINE NEGATIVE (NEGATIVE); COCAINE SCREEN URINE NEGATIVE (NEGATIVE); METHADONE STAT NEGATIVE (NEGATIVE); METHAMPHETAMINE SCREEN URINE S NEGATIVE (NEGATIVE); OPIATE SCREEN URINE POSITIVE (NEGATIVE); OXYCODONE STAT NEGATIVE (NEGATIVE); PROPOXYPHENE STAT NEGATIVE (NEGATIVE); TRICYCLIC ANTIDEPRESSANTS SCRE NEGATIVE (NEGATIVE)
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
[2018-02-09 01:04] VITALS: BP 138/87
--- NOTE | 2018-02-09 06:54 | Diagnostic Imaging Report ---
PROCEDURE: CT head without contrast. TECHNIQUE: Multiple contiguous axial images were obtained through the brain without the use of intravenous contrast. INDICATION: Altered mental status. Comparison: None available. Findings: Global atrophy with periventricular white matter hypoattenuation likely due to chronic microvascular ischemic disease. No hyperdense hemorrhage or space-occupying mass. No hydrocephalus or midline shift. Basilar cisterns remain patent. No acute osseous abnormality in the calvarium. Paranasal sinuses and mastoid air cells are clear. Orbits are unremarkable. IMPRESSION: 1. No acute intracranial process by CT. 2. Findings are in agreement with the preliminary report. Dictated by: Dictated on workstation # [id number]
--- NOTE | 2018-02-09 08:08 | Diagnostic Imaging Report ---
INDICATION: Cough, altered mental status.. TECHNIQUE: Single view chest 11:21 PM. CORRELATION STUDY: None FINDINGS: Asymmetric density of the left mid lung field as well as left lung base. Left lung volume loss. Right lung demonstrates likely chronic type change. Heart size and mediastinum are mildly prominent. Vasculature perhaps slightly increased. IMPRESSION: 1. Abnormal appearance about the left hemithorax. This may be owing to combination of effusion along with infiltrate particularly left midlung. However a mass lesion is not excluded. Vasculature also appears slightly prominent. 2. Given overall findings, short-term followup two-view chest imaging is recommended. If abnormality persists, CT imaging would be recommended. Report was faxed/called to Dr. [facility] ER by domingo at 8:00 am. Dictated by: Dictated on workstation # [id number]
== END 2018-02-09 01:04 ==
LOC: EDUNIT# 22:32 → ER 22:34
DX: G47.10 Hypersomnia, unspecified (principal); D64.9 Anemia, unspecified; D70.9 Neutropenia, unspecified; B19.20 Unspecified viral hepatitis C without hepatic coma; E03.9 Hypothyroidism, unspecified; F17.210 Nicotine dependence, cigarettes, uncomplicated; Z87.19 Personal history of other diseases of the digestive system
CPT/HCPCS: 36415; 70450; 71045; 80053; 80306; 80320; 80329; 81000; 82140; 82962; 83735; 84443; 85025; 85610; 85730; 93005; 93041

== ENCOUNTER → 2018-02-16 | Outpatient (CLI) | payer MEDICARE, MEDICAID ==
--- NOTE | 2018-02-16 11:25 | Diagnostic Imaging Report ---
EXAMINATION: CHEST (PA AND LATERAL) CLINICAL INDICATION: 72-year-old male, followup pneumonia. History of cough. COMPARISON: February 08, 2018. FINDINGS: There is significant interval improvement of previously noted left upper lobe airspace consolidation. There are persistent left parahilar opacities. Comparison with earlier imaging is not available to assess for potential long-term stability. There is no identified pneumothorax. There is no pleural effusion. The right lung is clear. There is a redemonstrated chronic-appearing right-sided rib deformity. Stable overall appearance of the cardiomediastinal silhouette. IMPRESSION: Significantly improved airspace consolidation in the left upper lobe with persistent nonspecific left parahilar opacities. Recommend comparison with earlier prior imaging if available to assess for potential long-term stability. Dictated by: Dictated on workstation # [id number]
== END ==
LOC: RAD 09:14
PROVIDERS: ATTEND Nurse Practitioner Community Health
DX: J18.1 Lobar pneumonia, unspecified organism (principal)
CPT/HCPCS: 71046

== ENCOUNTER → 2018-03-23 | Outpatient (CLI) | payer MEDICARE, MEDICAID ==
[~2018-03-23] MED LIST: CATHETER FLUSH 10 ML SYR IV PRN; IOHEXOL 350 MG/ML 100 ML (OMNIPAQUE 350) VIAL IV ONE; NS 250 ML (IVPB) BAG IV ONE; RECEIVED CONTRAST (Hold Metformin) IV SCH
--- NOTE | 2018-03-23 12:29 | Diagnostic Imaging Report ---
PROCEDURE: CT chest with and without contrast. TECHNIQUE: Multiple contiguous axial images were obtained through the chest before and after administration of intravenous contrast. INDICATION: Abnormal chest x-ray. COMPARISON: Comparison is made with chest radiograph from 03/10/2018. FINDINGS: No axillary lymphadenopathy is identified. No definite hilar or mediastinal lymphadenopathy is seen. No pericardial or pleural fluid is identified. Parenchymal evaluation demonstrates central airways to be patent. There is an area of irregular soft tissue density in the anterior aspect of the left upper lobe, corresponding with the chest radiographic abnormality. The rounded component measures 2.6 x 2.0 cm. There is some adjacent pleural thickening present. This does have radiations extending towards the left hilum. The remainder of the lung gilbert are clear. The upper abdomen is unremarkable. IMPRESSION: Abnormal opacity in the left upper lobe with associated pleural thickening. While this may represent an infectious/inflammatory process, possibility of neoplasm cannot be entirely excluded. PET scan may be useful to evaluate for hypermetabolism. If this is indeed hypermetabolic, this would likely be amenable to CT-guided biopsy. No definite thoracic or hilar lymphadenopathy is identified. Dictated by: Dictated on workstation # [id number]
== END ==
LOC: RAD 10:51
PROVIDERS: ATTEND Nurse Practitioner Community Health
DX: R91.8 Other nonspecific abnormal finding of lung field (principal)
CPT/HCPCS: 71270

== ENCOUNTER 2018-04-15 00:38 | Emergency (ER) | payer MEDICARE, MEDICAID ==
[~2018-04-15] VITALS: Ht 167.6 cm; Wt 57.6 kg
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
[2018-04-15 02:53] VITALS: BP 150/81
--- NOTE | 2018-04-15 06:38 | Diagnostic Imaging Report ---
INDICATION: Fall COMPARISON: Chest 03/10/2018 FINDINGS: Single view of the chest demonstrates stable nodular infiltrate in the left upper lobe. See dictated CT report 03/23/2018. There is no pneumothorax or large effusion. The heart is prominent without pulmonary edema. Osseous structures are age-appropriate. IMPRESSION: 1. Stable nodular infiltrate left upper lobe. See previously dictated CT report. 2. No acute trauma identified Dictated by: Dictated on workstation # [id number]
--- NOTE | 2018-04-15 06:39 | Diagnostic Imaging Report ---
INDICATION: Fall COMPARISON: None FINDINGS: Single view of the pelvis demonstrates no fracture or dislocation. Articular surfaces are age-appropriate. IMPRESSION: No fracture or dislocation Dictated by: Dictated on workstation # [id number]
--- NOTE | 2018-04-15 06:41 | Diagnostic Imaging Report ---
Indication: Fall, back pain. Comparison: None. Findings: There is no traumatic malalignment of the thoracal lumbar spine. There is a compression deformity involving the superior endplate of L1. Please correlate with point tenderness. If the patient is exquisitely tender in this region, consider an MRI. No additional fracture is seen. Degenerative changes seen throughout the disc spaces and facet joints. This is most pronounced at L3-4. There is no paraspinous mass. There is partial visualization of an infiltrative mass in the left anterior lung. No osseous lesions are seen. Impression: L1 compression fracture of uncertain age. This does have somewhat of an acute subacute appearance. If the patient is tender in this region consider MRI and possible kyphoplasty. Dictated by: Dictated on workstation # [id number]
--- NOTE | 2018-04-15 06:43 | Diagnostic Imaging Report ---
PROCEDURE: CT head and CT cervical spine without contrast. TECHNIQUE: Multiple contiguous axial images were obtained through the brain and cervical spine without the use of intravenous contrast. Sagittal and coronal reformations through the cervical spine were then performed. INDICATION: Trauma COMPARISON: None CT head: Age-related cerebral volume loss and chronic small vessel ischemic changes are present. There is no midline shift or mass effect. There is no hemorrhage or focus of acute ischemia. No skull fracture seen. Paranasal sinuses and mastoids are clear. IMPRESSION: No acute intracranial abnormality. CT cervical spine: There is chronic height loss of C5. Moderate degenerative changes seen throughout. There is no traumatic malalignment or acute fracture. No paraspinous mass. IMPRESSION: No traumatic malalignment or fracture. Agree with preliminary report. Dictated by: Dictated on workstation # [id number]
== END 2018-04-15 02:53 | disposition home or self-care (01) ==
LOC: EDUNIT# 00:38 → ER 00:39
DX: S09.90XA Unspecified injury of head, initial encounter (principal); M54.2 Cervicalgia; M54.5 Low back pain; G89.29 Other chronic pain; R40.2142 Coma scale, eyes open, spontaneous, at arrival to emergency department; R40.2252 Coma scale, best verbal response, oriented, at arrival to emergency department; R40.2362 Coma scale, best motor response, obeys commands, at arrival to emergency department; F03.90 Unspecified dementia, unspecified severity, without behavioral disturbance, psychotic disturbance, mood disturbance, and anxiety; N40.0 Benign prostatic hyperplasia without lower urinary tract symptoms; E03.9 Hypothyroidism, unspecified; F17.210 Nicotine dependence, cigarettes, uncomplicated; Z87.828 Personal history of other (healed) physical injury and trauma; Z87.19 Personal history of other diseases of the digestive system; W18.30XA Fall on same level, unspecified, initial encounter; Y92.099 Unspecified place in other non-institutional residence as the place of occurrence of the external cause
CPT/HCPCS: 70450; 71045; 72125; 72128; 72131; 72170

== ENCOUNTER 2018-11-26 22:55 | Emergency (ER) | payer MEDICARE, MEDICAID ==
[~2018-11-26] VITALS: Ht 167.6 cm; Wt 69.5 kg
[~2018-11-26 22:55] MED LIST changes: +AZIT250T12 PO; +BACL10TA PO; -CATHETER FLUSH 10 ML SYR IV PRN; +DOCU-143 PO; +DONE10TA41 PO; +ESCI20TA45 PO; +GBPN600T PO; -IOHEXOL 350 MG/ML 100 ML (OMNIPAQUE 350) VIAL IV ONE; +LEVO125T6 PO; +LORA1TAB PO; +MORP-33 PO; +MORP-34 PO; +MORP15TA PO; +MORP30CA16 PO; -NS 250 ML (IVPB) BAG IV ONE; -RECEIVED CONTRAST (Hold Metformin) IV SCH; +RISP0.5T3 PO; +SPIR25TA5 PO; +TAMS0.4C2 PO
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
[2018-11-26 23:25] VITALS: BP 108/74
== END 2018-11-26 23:35 | disposition home or self-care (01) ==
LOC: EDUNIT# 22:55 → ER 22:56
DX: M79.605 Pain in left leg (principal); I11.0 Hypertensive heart disease with heart failure; I50.9 Heart failure, unspecified; E78.00 Pure hypercholesterolemia, unspecified; I25.10 Atherosclerotic heart disease of native coronary artery without angina pectoris; F03.90 Unspecified dementia, unspecified severity, without behavioral disturbance, psychotic disturbance, mood disturbance, and anxiety; E03.9 Hypothyroidism, unspecified; F41.9 Anxiety disorder, unspecified; F32.9 Major depressive disorder, single episode, unspecified; Z77.22 Contact with and (suspected) exposure to environmental tobacco smoke (acute) (chronic); W06.XXXA Fall from bed, initial encounter
CPT/HCPCS: 99282

== ENCOUNTER → 2020-09-04 | Outpatient (CLI) | payer MEDICARE, MEDICAID ==
[~2020-09-04] MED LIST changes: -MORP-33 PO; -MORP-34 PO; +MORP-68 PO; +MORP-69 PO; -RISP0.5T3 PO; +RISP0.5T65 PO
== END ==
LOC: HOSHH 10:46
PROVIDERS: ATTEND Internal Medicine
DX: Z01.89 Encounter for other specified special examinations (principal)
CPT/HCPCS: 87070; 87205